=== PATIENT | female | born 1980 | race African-American/Black ===

== ENCOUNTER 2017-03-31 10:56 | Emergency (ER) | payer OTHER ==
[~2017-03-31] VITALS: Ht 160 cm; Wt 100.0 kg
[~2017-03-31 10:56] MED LIST: ALBU.5I NEB; AMLO5TAB22 PO; DICL50 PO; FLON0.053; FLOV44AE IN; MACR100C PO; PREN0.01 PO; ZITH250T PO
[2017-03-31 10:59] VITALS: BP 145/97; PULSE 88; RESP 16; TEMP 97.7; O2SAT 99
[2017-03-31] MEDS ORDERED: SODIUM CHLOR 0.9% 1000 ML INJ 1,000 ML IV SCH (11:14)
[2017-03-31] MEDS ORDERED: FLUTI220I INH (11:17)
[2017-03-31] MEDS ORDERED: VENTAER INH (11:17)
[2017-03-31] MEDS ORDERED: ALBU0.08 NEB (11:17)
[2017-03-31] MEDS ORDERED: PANTOPRAZOLE SODIUM 40 MG VIAL IVP ONE (11:30)
[2017-03-31] MEDS ORDERED: MORPHINE SULFATE 4 MG/ML INJ IV PUSH ONE ×2 (11:30→15:45)
[2017-03-31] MEDS ORDERED: ONDANSETRON HCL 4 MG/2 ML VIAL IVP ONE (11:30)
[2017-03-31] MEDS ORDERED: FAMOTIDINE 20 MG/2 ML VIAL IV PUSH ONE (11:30)
--- NOTE | 2017-03-31 11:36 | PD ---
HPI Chief Complaint: Abdominal Pain Time Seen by Provider: 11:31 Travel History International Travel<30 days: No Contact w/Intl Traveler<30days: No Traveled to known affect area: No History of Present Illness HPI 37-year-old female that presents to the ED for evaluation of abdominal pain. Per patient she's had epigastric abdominal pain as well as in the right upper quadrant for the past 2 weeks. Per patient is presently getting worse. Per patient she does have a history of gallbladder surgery multiple years ago. Per patient the pain is not worse with food and she still has her appetite. She does feel nauseous and has diarrhea. States that the pain seems to progressively getting worse. She does have a history of pancreatitis and states that he feels very similar. She went to her doctor today and he wanted her to come here straight away. Patient comes here with a prescription from that states that patient needs to be worked up for pancreatitis. Per patient the pain is 8 out of 10. Does not radiate. She does state having watery diarrhea. Stating feeling nauseous but no vomiting. No blood. There report from the doctor who sent her here patient had a recent ultrasound that showed fatty liver but no other sign of acute disease. PFSH Past Medical History Hx Anticoagulant Therapy: No Asthma: Yes Chemotherapy: No Cerebrovascular Accident: No Diabetes: No Diminished Hearing: No Genitourinary: No Hypertension: Yes Musculoskeletal: No Neurologic: No Reproductive: Yes Respiratory: Yes (ASTHMA) Immunizations Current: Yes Pancreatitis: Yes Ulcer: Yes ?: Unknown LMP: 01/23/17 : 4 Para: 0 Miscarriage: 4 Ovarian Cysts: Yes Past Surgical History Abdominal Surgery: Yes (GALLBLADDER & APPENDEX) Appendectomy: Yes Cholecystectomy: Yes Gynecologic Surgery: Yes (OVARIAN CYST) Hysterectomy: No Other Surgery: Yes Social History Alcohol Use: No Tobacco Use: No Substance Use: No Allergies-Medications (Allergen,Severity, Reaction): Coded Allergies: Amoxicillin (Verified Allergy, Severe, CAN'T BREATHE, 03/31/17) Latex (Verified Allergy, Severe, RASH, ITCH, 03/31/17) Lortab (Verified Allergy, Severe, RASH, CANT BREATHE, NAUSEA AND VOMITING , 03/31/17) [place] (Verified Allergy, Severe, ANAPHALACTIC, 03/31/17) Penicillin (Verified Allergy, Severe, HIVES, CAN'T BREATHE, 03/31/17) Shellfish (Verified Allergy, Severe, ANAPHALCTIC, 03/31/17) Tomato (Verified Allergy, Severe, ANAPHALACTIC, 03/31/17) Reported Meds & Prescriptions Reported Meds & Active Scripts Active Reported Ventolin Hfa 18 GM Inh (Albuterol Sulfate) 90 Mcg/Act Aer 2 Puff INH Q4-6H PRN Albuterol Neb (Albuterol Sulfate) 2.5 Mg/3 Ml Neb 2.5 Mg NEB Q4HR NEB PRN Flovent Hfa 12 GM Inh (Fluticasone Propionate) 220 Mcg/Act Inh 1 Puff INH BID Use daily at the same time. Review of Systems Except as stated in HPI: all other systems reviewed are Neg Physical Exam Narrative GENERAL: SKIN: Warm and dry. HEAD: Atraumatic. Normocephalic. EYES: Pupils equal and round 4 mm reactive to light and accommodation. No scleral icterus. No injection or drainage. ENT: No nasal bleeding or discharge. Mucous membranes pink and moist. Tongue is midline. No uvula deviation. NECK: Trachea midline. No JVD. CARDIOVASCULAR: Regular rate and rhythm. No murmurs, S3, S4. RESPIRATORY: No accessory muscle use. Clear to auscultation. Breath sounds equal bilaterally. GASTROINTESTINAL: Abdomen soft, patient has reproducible epigastric abdominal pain as well as right upper quadrant pain, nondistended. Hepatic and splenic margins not palpable. MUSCULOSKELETAL: Extremities without clubbing, cyanosis, or edema. No obvious deformities. Full range of motion of the upper and lower extremities bilaterally. 2+ pulses bilaterally. No lumbar, thoracic, cervical spine tenderness to palpation. NEUROLOGICAL: Awake and alert. No obvious cranial nerve deficits. Motor grossly within normal limits. Five out of 5 muscle strength in the arms and legs. Normal speech. PSYCHIATRIC: Appropriate mood and affect; insight and judgment normal. Data Data Last Documented VS Vital Signs Date Time Temp Pulse Resp B/P Pulse Ox O2 Delivery O2 Flow Rate FiO2 03/31/17 15:00 68 16 114/73 99 03/31/17 10:59 97.7 Orders Complete Blood Count With Diff (03/31/17 11:14) Comprehensive Metabolic Panel (03/31/17 11:14) Lipase (03/31/17 11:14) Lactic Acid (03/31/17 11:14) Urinalysis - C+S If Indicated (03/31/17 11:14) Iv Access Insert/Monitor (03/31/17 11:14) Sodium Chlor 0.9% 1000 Ml Inj (Ns 1000 M (03/31/17 11:14) Ed Urine Pregnancytest Poc (03/31/17 11:14) Morphine Inj (Morphine Inj) (03/31/17 11:30) Ondansetron Inj (Zofran Inj) (03/31/17 11:30) Pantoprazole Inj (Protonix Inj) (03/31/17 11:30) Famotidine Inj (Pepcid Inj) (03/31/17 11:30) Ct Abd/Pel W Iv Contrast(Rout) (03/31/17 ) Iohexol 350 Inj (Omnipaque 350 Inj) (03/31/17 13:42) Mri Mrcp W/O Contrast (03/31/17 ) Morphine Inj (Morphine Inj) (03/31/17 15:45) Labs Laboratory Tests Test 03/31/17 03/31/17 11:10 11:20 Urine Color YELLOW Urine Turbidity CLEAR Urine pH 6.0 Urine Specific [place] 1.019 Urine Protein NEG mg/dL Urine Glucose (UA) NEG mg/dL Urine Ketones NEG mg/dL Urine Occult Blood NEG Urine Nitrite NEG Urine Bilirubin NEG Urine Urobilinogen LESS THAN 2.0 MG/DL Urine Leukocyte Esterase NEG Urine RBC LESS THAN 1 /hpf Urine WBC 2 /hpf Urine Squamous Epithelial 1 /hpf Cells Urine Mucus FEW /lpf Microscopic Urinalysis Comment CULT NOT INDICATED White Blood Count 4.5 TH/MM3 Red Blood Count 4.30 MIL/MM3 Hemoglobin 11.1 GM/DL Hematocrit 35.6 % Mean Corpuscular Volume 82.7 FL Mean Corpuscular Hemoglobin 25.8 PG Mean Corpuscular Hemoglobin 31.2 % Concent Red Cell Distribution Width 17.3 % Platelet Count 266 TH/MM3 Mean Platelet Volume 8.8 FL Neutrophils (%) (Auto) 35.0 % Lymphocytes (%) (Auto) 46.8 % Monocytes (%) (Auto) 9.1 % Eosinophils (%) (Auto) 8.3 % Basophils (%) (Auto) 0.8 % Neutrophils # (Auto) 1.6 TH/MM3 Lymphocytes # (Auto) 2.1 TH/MM3 Monocytes # (Auto) 0.4 TH/MM3 Eosinophils # (Auto) 0.4 TH/MM3 Basophils # (Auto) 0.0 TH/MM3 CBC Comment DIFF FINAL Differential Comment Sodium Level 140 MEQ/L Potassium Level 3.7 MEQ/L Chloride Level 107 MEQ/L Carbon Dioxide Level 27.9 MEQ/L Anion Gap 5 MEQ/L Blood Urea Nitrogen 7 MG/DL Creatinine 0.82 MG/DL Estimat Glomerular Filtration 95 ML/MIN Rate Random Glucose 84 MG/DL Lactic Acid Level 0.7 mmol/L Calcium Level 9.0 MG/DL Total Bilirubin 0.3 MG/DL Aspartate Amino Transf 17 U/L (AST/SGOT) Alanine Aminotransferase 21 U/L (ALT/SGPT) Alkaline Phosphatase 71 U/L Total Protein 7.7 GM/DL Albumin 3.4 GM/DL Lipase 150 U/L [facility] Medical Decision Making Medical Screen Exam Complete: Yes Emergency Medical Condition: Yes Medical Record Reviewed: Yes Interpretation(s) CBC & BMP Diagram 03/31/17 11:20 LFts and lipase WNL UA negative Last Impressions Cholangiopancreatography MRI 03/31/17 0000 Signed Impressions: Service Date/Time: Friday, March 31, 2017 17:21 - CONCLUSION: Unremarkable exam post cholecystectomy Amandeep Watts MD Abdomen/Pelvis CT 03/31/17 0000 Signed Impressions: Service Date/Time: Friday, March 31, 2017 13:31 - CONCLUSION: 1. Status post cholecystectomy with slightly more prominent intra-and extrahepatic ductal dilatation including mild central pancreatic ductal dilatation. The pancreas otherwise appears unremarkable by CT. Differential considerations include sphincter dysfunction versus partial obstruction at the ampulla. Clinical correlation is recommended. HIDA scan can help establish ductal patency. Alternatively, MRCP can be performed for further evaluation. 2. Redemonstration of bilateral nearly punctate nonobstructing renal calculi, as above. 1. Artur Mcknight MD Differential Diagnosis Pancreatitis versus chronic pancreatitis versus gastritis versus gastroenteritis versus liver disease versus obstruction versus sepsis Narrative Course 37-year-old female that presents to the ED for evaluation of epigastric abdominal pain. Patient was properly examined and was found to have signs and symptoms very consistent what appears to be acute pancreatitis. Patient was sent here by her doctor for evaluation of this. IV was established, labs were ordered. IV medications and fluids were ordered as well. Labs showed no sign of acute disease. CT scan was ordered as patient continues to have severe discomfort. CT scan did show possible dilatation of the bile duct. Case discussed in my attending about the results and he recommends speaking with GI. I spoke with Dr. Trejo for recommends that we pursue the MRCP for further evaluation secondary to the patient's discomfort. The MRCP came back negative. The family is not here to be gallbladder disease. Patient was reassured. Unclear etiology but could be related to gastritis. At this time we'll treat her with pain medication, Protonix, ranitidine. Patient was told to follow with GI old patient. See ED worsening symptoms. Follow with PCP. Diagnosis Primary Impression: Epigastric abdominal pain Additional Impression: Gastritis Qualified Code: K29.00 - Acute gastritis without hemorrhage, unspecified gastritis type Referrals: Juan Magaña MD Patient Instructions: General Instructions, Narcotic given in the ED Additional Instructions: Take medications as prescribed. Follow-up with PCP or GI specialist. See ED for any worsening symptoms. Do not drink or drive while taking pain medication. Apply ice or heat as needed for pain Med/Other Pt SpecificInfo: Prescription(s) given Scripts Ranitidine 150 Mg [id number] Mg PO BID #20 TAB Ref 0 Prov:Nguyễn Mares MD 03/31/17 Pantoprazole (Protonix)40 Mg Tab40 Mg PO DAILY #30 TAB Ref 0 Prov:Nguyễn Mares MD 03/31/17 Tramadol 50 Mg Tab50 Mg PO Q6H PRN (PAIN) #20 TAB Ref 0 Prov:Nguyễn Mares MD 03/31/17 Disposition: 01 DISCHARGE HOME Condition: Stable Rodrigo Maria Mar 31, 2017 11:36
[2017-03-31 11:38] LABS: AUTOMATED NEUTROPHIL # 1.6 TH/MM3 (1.8-7.7); BASOPHIL % 0.8 % (0.0-2.0); EOSINOPHIL # 0.4 TH/MM3 (0-0.4); EOSINOPHIL % 8.3 % (0.0-4.0); HEMATOCRIT 35.6 % (35.0-46.0); HEMO FLAGS DIFF FINAL; LYMPH % 46.8 % (9.0-44.0); LYMPHOCYTE # 2.1 TH/MM3 (1.0-4.8); MEAN CELL VOLUME 82.7 FL (80.0-100.0); MEAN CORPUSCULAR HEMOGLOBIN 25.8 PG (27.0-34.0); MEAN CORPUSCULAR HGB CONC 31.2 % (32.0-36.0); MONO % 9.1 % (0.0-8.0); PLATELET COUNT 266 TH/MM3 (150-450); RED CELL DISTRIBUTION WIDTH 17.3 % (11.6-17.2); WHITE BLOOD COUNT 4.5 TH/MM3 (4.0-11.0)
[2017-03-31 11:47] LABS: BLOOD, URINE NEG (NEG); COMMENT (UR) CULT NOT INDICATED; CULTURE IF INDICATED CULT NOT INDICATED; GLUCOSE,URINE NEG (NEG); KETONE, URINE NEG (NEG); MUCUS URINE FEW /lpf (OCC); NITRITE,URINE NEG (NEG); SQUAMOUS EPITHELIAL CELL URINE 1 /hpf (0-5); URINE COLOR YELLOW (YELLW/STRAW)
[2017-03-31 11:58] LABS: ANION GAP 5 MEQ/L (5-15); AST (GOT) 17 U/L (15-37); BICARBONATE 27.9 MEQ/L (21.0-32.0); BLOOD UREA NITROGEN 7 MG/DL (7-18); CHLORIDE 107 MEQ/L (98-107); GLOMERULAR FILTRATION RATE 95 ML/MIN (>89); POTASSIUM 3.7 MEQ/L (3.5-5.1); SODIUM (NA) 140 MEQ/L (136-145)
[2017-03-31 12:02] LABS: ALKALINE PHOSPHATASE 71 U/L (45-117); ALT (GPT) 21 U/L (10-53); TOTAL BILIRUBIN ADULT 0.3 MG/DL (0.2-1.0)
[2017-03-31] MEDS ORDERED: IOHEXOL 350 MG/ML 10 ML VIAL (for RAD DIAG) IV ONE (13:42)
--- NOTE | 2017-03-31 14:21 | RADRPT ---
EXAM DATE/TIME: 03/31/2017 13:31 [facility] COMPARISON: CT ABDOMEN & PELVIS W CONTRAST, May 22, 2016, 3:01. INDICATIONS : Right upper quadrant pain. Pancreatitis with fever and diarrhea. IV CONTRAST: 100 cc Omnipaque 350 (iohexol) IV ORAL CONTRAST: No oral contrast ingested. RADIATION DOSE: 16.54 CTDIvol (mGy) MEDICAL HISTORY : Hypertension. Pancreatitis. SURGICAL HISTORY : Cholecystectomy. Appendectomy.Knee surgery. ENCOUNTER: Initial ACUITY: 2 weeks PAIN SCALE: 6/10 LOCATION: Right upper quadrant TECHNIQUE: Volumetric scanning of the abdomen and pelvis was performed. Using automated exposure control and ad justment of the mA and/or kV according to patient size, radiation dose was kept as low as reasonably achievable to obtain optimal diagnostic quality images. DICOM format image data is available electro nically for review and comparison. FINDINGS: LOWER LUNGS: Minimal bibasilar atelectasis. LIVER: Gallbladder is surgically absent. There is mild extra and central intrahepatic ductal dilatation whic h appears minimally more prominent on the current exam in comparison to previous examination. This ex tends to the level of the ampulla. Liver is otherwise unremarkable without significant focal mass. SPLEEN: Normal size without lesion. PANCREAS: Mild central pancreatic ductal dilatation new since previous exam. The pancreas demonstrates diffusel y normal enhancement. No pancreatic tail atrophy or peripancreatic fluid collections. KIDNEYS: Kidneys are symmetrical in size without evidence for hydronephrosis. There are bilateral nearly punct ate calyceal calcified calculi. Largest on the left measures up to 5 mm in the superior pole and larg est on the right measures approximately 2 mm in the mid right kidney. There are subcentimeter lateral cystic renal lesions which are too small to fully characterize. ADRENAL GLANDS: Within normal limits. VASCULAR: There is no aortic aneurysm. BOWEL/MESENTERY: Appendix is surgically absent. Bowel otherwise appears unremarkable. No evidence for obstruction. The re is no significant free fluid or drainable fluid collection. ABDOMINAL WALL: Within normal limits. RETROPERITONEUM: There is no lymphadenopathy. BLADDER: No wall thickening or mass. REPRODUCTIVE: Slightly retroverted uterus with small amount of endometrial fluid likely due to phase of menstrual c ycle. Redemonstration of prominent left ovary similar to previous exams. INGUINAL: There is no lymphadenopathy or hernia. MUSCULOSKELETAL: Within normal limits for patient age. CONCLUSION: 1. Status post cholecystectomy with slightly more prominent intra-and extrahepatic ductal dilatation including mild central pancreatic ductal dilatation. The pancreas otherwise appears unremarkable by C T. Differential considerations include sphincter dysfunction versus partial obstruction at the ampull a. Clinical correlation is recommended. HIDA scan can help establish ductal patency. Alternatively, M [employer] can be performed for further evaluation. 2. Redemonstration of bilateral nearly punctate nonobstructing renal calculi, as above. 1. Artur Mcknight MD on March 31, 2017 at 13:51 Board Certified Radiologist. This report was verified electronically.
[2017-03-31 15:00] VITALS: BP 114/73; PULSE 68; RESP 16; O2SAT 99
--- NOTE | 2017-03-31 18:08 | RADRPT ---
EXAM DATE/TIME: 03/31/2017 17:21 [facility] COMPARISON: CT ABDOMEN & PELVIS W CONTRAST, March 31, 2017, 13:31. INDICATIONS : Obstruction. MEDICAL HISTORY : Asthma. SURGICAL HISTORY : Appendectomy. Cholecystectomy. Ovarian cyst removal. Right knee arthroscopy. ENCOUNTER: Subsequent ACUITY: 2 weeks PAIN SCORE: 5/10 LOCATION: Abdomen. TECHNIQUE: Multiplanar, multisequence magnetic resonance imaging of the abdomen was performed. High-resolution 3D dataset was utilized to reconstruct maximum-intensity projection (MIP) images. FINDINGS: INTRAHEPATIC BILE DUCTS: Within normal limits. No significant anatomical variant is present. EXTRAHEPATIC BILE DUCTS: The common bile duct measures 7-8 mm No stone or filling defect is identified. GALLBLADDER: Surgically absent LIVER: Normal size and signal intensity. No concerning liver lesion is identified on this non-contrast exam. PANCREAS: The main pancreatic duct is normal in size. There is no significant anatomical variant. Signal inte nsity is within normal limits. No mass is visualized on this non-contrast exam. OTHER: The remaining visualized structures demonstrate no acute abnormality on this non-contrast exam. CONCLUSION: Unremarkable exam post cholecystectomy Amandeep Watts MD on March 31, 2017 at 18:03 Board Certified Radiologist. This report was verified electronically.
[2017-03-31] MEDS ORDERED: TRAM50TA PO (18:14)
[2017-03-31] MEDS ORDERED: PROT40TA PO (18:14)
[2017-03-31] MEDS ORDERED: RANI150T PO (18:14)
== END 2017-03-31 18:39 | disposition home or self-care (01) ==
LOC: NEPC 10:56
DX: R10.13 Epigastric pain (principal); K29.00 Acute gastritis without bleeding; N20.0 Calculus of kidney; K85.90 Acute pancreatitis without necrosis or infection, unspecified; J45.909 Unspecified asthma, uncomplicated; I10 Essential (primary) hypertension; Z79.899 Other long term (current) drug therapy; Z79.51 Long term (current) use of inhaled steroids; Z90.49 Acquired absence of other specified parts of digestive tract
CPT/HCPCS: 74177; 74181; 76377; 80053; 81001; 83605; 83690; 84703; 85025; 96374; 96375; 96376; 99285; C9113; J2270; J2405; J7030; Q9967

== ENCOUNTER 2017-04-01 22:40 | Observation (INO) | payer OTHER ==
[~2017-04-01] VITALS: Ht 160 cm; Wt 101.0 kg
[~2017-04-01 22:40] MED LIST changes: -ALBU.5I NEB; +ALBU0.08 NEB; -AMLO5TAB22 PO; -DICL50 PO; -FLON0.053; -FLOV44AE IN; +FLUTI220I INH; -MACR100C PO; -PREN0.01 PO; +PROT40TA PO; +RANI150T PO; +TRAM50TA PO; +VENTAER INH; -ZITH250T PO
[2017-04-01 22:42] VITALS: BP 132/80; PULSE 75; RESP 16; TEMP 97.8; O2SAT 98
[2017-04-02] VITALS (7 sets, daily range): BP systolic 109–136; BP diastolic 56–85; PULSE 62–80; RESP 18–19; TEMP 97.5–98.4; O2SAT 96–100
[2017-04-02] MEDS ORDERED: ONDANSETRON HCL 4 MG/2 ML VIAL IV PUSH ONE (03:45)
[2017-04-02] MEDS ORDERED: SODIUM CHLOR 0.9% 1000 ML INJ 1,000 ML IV ONE (03:45)
[2017-04-02] MEDS ORDERED: MORPHINE SULFATE 4 MG/ML INJ IV PUSH ONE (03:45)
[2017-04-02] MEDS ORDERED: PANTOPRAZOLE SODIUM 40 MG VIAL IV PUSH ONE (03:45)
--- NOTE | 2017-04-02 03:51 | PD ---
HPI Chief Complaint: GI Complaint Time Seen by Provider: 03:45 Travel History International Travel<30 days: No Contact w/Intl Traveler<30days: No Traveled to known affect area: No History of Present Illness HPI 37-year-old female presents to the emergency department for complaint of persistent epigastric and right upper quadrant abdominal pain. Patient's had symptoms for several weeks. Patient has been seen by her primary care provider and referred to the emergency department for further evaluation. Patient was seen in the emergency department yesterday and underwent laboratory work CT and MRCP. No specific abnormality was identified and patient was discharged to home with her condition follow-up with her primary care provider. She continues to have pain and has not been seen yet by a skin care instructor. Patient denies fever or chills. Patient states yesterday she tried to drink Gatorade and then advance to a bologna sandwich and then vomited. Patient states that she has had poor oral intake and that continues to have nausea with sublingual Zofran. Patient denies fever or chills. No hematemesis no coffee- ground emesis no melena or hematochezia. Patient denies generalized abdominal pain dysuria frequency urgency flank pain hematuria and no vaginal discharge or vaginal bleeding. Patient is status post cholecystectomy and appendectomy. Patient denies any chest pain or shortness of breath. Patient is unable to identify exacerbating or alleviating factors although does note that she is intolerable of oral intake because it causes vomiting. Patient also notes that her abdomen is tender to palpation. PFSH Past Medical History Narrative Medical Asthma hypertension abdominal pain of unclear etiology ovarian cyst pancreatitis cholecystectomy appendectomy; occasional alcohol use; nursing notes reviewed Hx Anticoagulant Therapy: No Asthma: Yes Chemotherapy: No Cerebrovascular Accident: No Diabetes: No Diminished Hearing: No Genitourinary: No Hypertension: Yes Musculoskeletal: No Neurologic: No Reproductive: Yes Respiratory: Yes (ASTHMA) Immunizations Current: Yes Pancreatitis: Yes Ulcer: Yes ?: Not LMP: 01/23/17 : 4 Para: 0 Miscarriage: 4 Ovarian Cysts: Yes Past Surgical History Abdominal Surgery: Yes (GALLBLADDER & APPENDEX) Appendectomy: Yes Cholecystectomy: Yes Gynecologic Surgery: Yes (OVARIAN CYST) Hysterectomy: No Other Surgery: Yes Social History Alcohol Use: Yes (OCC) Tobacco Use: No Substance Use: No Allergies-Medications (Allergen,Severity, Reaction): Coded Allergies: Amoxicillin (Verified Allergy, Severe, CAN'T BREATHE, 04/01/17) Latex (Verified Allergy, Severe, RASH, ITCH, 04/01/17) Lortab (Verified Allergy, Severe, RASH, CANT BREATHE, NAUSEA AND VOMITING , 04/01/17) Petroleum (Verified Allergy, Severe, ANAPHALACTIC, 04/01/17) Penicillin (Verified Allergy, Severe, HIVES, CAN'T BREATHE, 04/01/17) Shellfish (Verified Allergy, Severe, ANAPHALCTIC, 04/01/17) Tomato (Verified Allergy, Severe, ANAPHALACTIC, 04/01/17) Reported Meds & Prescriptions Reported Meds & Active Scripts Active Ranitidine (Ranitidine HCl) 150 Mg Tab 150 Mg PO BID Protonix (Pantoprazole Sodium) 40 Mg Tab 40 Mg PO DAILY Tramadol (Tramadol HCl) 50 Mg Tab 50 Mg PO Q6H PRN Reported Ventolin Hfa 18 GM Inh (Albuterol Sulfate) 90 Mcg/Act Aer 2 Puff INH Q4-6H PRN Albuterol Neb (Albuterol Sulfate) 2.5 Mg/3 Ml Neb 2.5 Mg NEB Q4HR NEB PRN Flovent Hfa 12 GM Inh (Fluticasone Propionate) 220 Mcg/Act Inh 1 Puff INH BID Use daily at the same time. Review of Systems Except as stated in HPI: all other systems reviewed are Neg Physical Exam Narrative GENERAL: Well-developed obese female in no acute distress no respiratory distress SKIN: Warm and dry. HEAD: Normocephalic. EYES: No scleral icterus. No injection or drainage. NECK: Supple, trachea midline. No JVD or lymphadenopathy. CARDIOVASCULAR: Regular rate and rhythm without murmurs, gallops, or rubs. RESPIRATORY: Breath sounds equal bilaterally. No accessory muscle use. GASTROINTESTINAL: Abdomen soft, tender epigastric and right upper quadrant to palpation without guarding or rebound, nondistended. MUSCULOSKELETAL: No cyanosis, or edema. BACK: Nontender without obvious deformity. No CVA tenderness. Data Data Last Documented VS Vital Signs Date Time Temp Pulse Resp B/P Pulse Ox O2 Delivery O2 Flow Rate FiO2 04/02/17 06:58 80 18 123/76 100 Room Air 04/01/17 22:42 97.8 Orders Complete Blood Count With Diff (04/02/17 03:45) Comprehensive Metabolic Panel (04/02/17 03:45) Lipase (04/02/17 03:45) Lactic Acid (04/02/17 03:45) Sodium Chlor 0.9% 1000 Ml Inj (Ns 1000 M (04/02/17 03:45) Pantoprazole Inj (Protonix Inj) (04/02/17 03:45) Ondansetron Inj (Zofran Inj) (04/02/17 03:45) Morphine Inj (Morphine Inj) (04/02/17 03:45) Ketorolac Inj (Toradol Inj) (04/02/17 06:00) Labs Laboratory Tests Test 04/02/17 04:04 White Blood Count 5.4 TH/MM3 Red Blood Count 3.94 MIL/MM3 Hemoglobin 10.4 GM/DL Hematocrit 32.5 % Mean Corpuscular Volume 82.6 FL Mean Corpuscular Hemoglobin 26.4 PG Mean Corpuscular Hemoglobin 32.0 % Concent Red Cell Distribution Width 17.2 % Platelet Count 254 TH/MM3 Mean Platelet Volume 9.0 FL Neutrophils (%) (Auto) 39.4 % Lymphocytes (%) (Auto) 45.7 % Monocytes (%) (Auto) 8.2 % Eosinophils (%) (Auto) 6.3 % Basophils (%) (Auto) 0.4 % Neutrophils # (Auto) 2.1 TH/MM3 Lymphocytes # (Auto) 2.5 TH/MM3 Monocytes # (Auto) 0.4 TH/MM3 Eosinophils # (Auto) 0.3 TH/MM3 Basophils # (Auto) 0.0 TH/MM3 CBC Comment DIFF FINAL Differential Comment Sodium Level 144 MEQ/L Potassium Level 3.5 MEQ/L Chloride Level 108 MEQ/L Carbon Dioxide Level 30.4 MEQ/L Anion Gap 6 MEQ/L Blood Urea Nitrogen 10 MG/DL Creatinine 0.83 MG/DL Estimat Glomerular Filtration 94 ML/MIN Rate Random Glucose 72 MG/DL Lactic Acid Level 1.0 mmol/L Calcium Level 8.5 MG/DL Total Bilirubin 0.1 MG/DL Aspartate Amino Transf 14 U/L (AST/SGOT) Alanine Aminotransferase 22 U/L (ALT/SGPT) Alkaline Phosphatase 88 U/L Total Protein 7.3 GM/DL Albumin 3.2 GM/DL Lipase 248 U/L [facility] Medical Decision Making Medical Screen Exam Complete: Yes Emergency Medical Condition: Yes Medical Record Reviewed: Yes Interpretation(s) CBC & BMP Diagram 04/02/17 04:04 Vital Signs Date Time Temp Pulse Resp B/P Pulse Ox O2 Delivery O2 Flow Rate FiO2 04/02/17 06:58 80 18 123/76 100 Room Air 04/01/17 22:42 97.8 75 16 132/80 98 Room Air Differential Diagnosis Abdominal pain, gastritis, peptic ulcer disease, pancreatitis, hepatitis, gastroparesis, cyclic vomiting, collected by disturbance, dehydration, esophagitis Narrative Course IV access obtained; specimens collected and sent for resulting Patient administered morphine sulfate 4 mg IV along with Zofran 4 mg IV and normal saline bolus also administered Protonix 40 mg IV CBC is automated differential and metabolic panel along with lactic acid values are normal range Patient reexamined abdomen remains very tender in the right upper quadrant mild epigastric tenderness; one-time dose of Toradol 30 mg IV administered Patient reassessed and some decrease in epigastric discomfort but continues to complain of marked right upper quadrant tenderness with palpation; additional morphine sulfate administered for pain management; patient's case discussed with on-call skin care instructor Dr. Magaña and who actually was consult on Monday for the same patient for the same complaint patient had undergone CT abdomen and pelvis that showed some intra-and extra hepatic ductal dilatation as well as mild pancreatic duct dilatation with recommendation for HIDA scan and /or MRCP; patient underwent MRCP at recommendation of skin care instructor --- MRCP was a normal study. Patient was discharged with prescription for Protonix Zantac and tramadol. Toradol has provided no symptom relief and due to worsening and persistent symptoms recommendation per skin care instructor Dr. Magaña consult this a.m. is for observation admission with planned EGD in a.m. Physician Communication Physician Communication case discussed with Dr Trejo --recommends obs with planned EGD in AM Diagnosis Primary Impression: Epigastric abdominal pain Additional Impression: Gastritis Qualified Code: K29.70 - Gastritis without bleeding, unspecified chronicity, unspecified gastritis type Admitting Information Admitting Physician Requests: Observation Carmen High MD Apr 02, 2017 03:51
[2017-04-02 04:34] LABS: AUTOMATED NEUTROPHIL # 2.1 TH/MM3 (1.8-7.7); BASOPHIL % 0.4 % (0.0-2.0); EOSINOPHIL # 0.3 TH/MM3 (0-0.4); EOSINOPHIL % 6.3 % (0.0-4.0); HEMATOCRIT 32.5 % (35.0-46.0); HEMO FLAGS DIFF FINAL; LYMPH % 45.7 % (9.0-44.0); LYMPHOCYTE # 2.5 TH/MM3 (1.0-4.8); MEAN CELL VOLUME 82.6 FL (80.0-100.0); MEAN CORPUSCULAR HEMOGLOBIN 26.4 PG (27.0-34.0); MONO % 8.2 % (0.0-8.0); NEUT % 39.4 % (16.0-70.0); PLATELET COUNT 254 TH/MM3 (150-450); RED BLOOD COUNT 3.94 MIL/MM3 (4.00-5.30); RED CELL DISTRIBUTION WIDTH 17.2 % (11.6-17.2); WHITE BLOOD COUNT 5.4 TH/MM3 (4.0-11.0)
[2017-04-02 04:56] LABS: ALT (GPT) 22 U/L (10-53); ANION GAP 6 MEQ/L (5-15); AST (GOT) 14 U/L (15-37); BICARBONATE 30.4 MEQ/L (21.0-32.0); BLOOD UREA NITROGEN 10 MG/DL (7-18); CHLORIDE 108 MEQ/L (98-107); GLOMERULAR FILTRATION RATE 94 ML/MIN (>89); POTASSIUM 3.5 MEQ/L (3.5-5.1); SODIUM (NA) 144 MEQ/L (136-145)
[2017-04-02 04:57] LABS: ALKALINE PHOSPHATASE 88 U/L (45-117); TOTAL BILIRUBIN ADULT 0.1 MG/DL (0.2-1.0)
[2017-04-02] MEDS ORDERED: KETOROLAC TROMETHAMINE 30 MG/ML (IVP) VIAL IV PUSH ONE (06:00)
[2017-04-02] MEDS ORDERED: SODIUM CHLORIDE 0.9% FLUSH 10 ML FLUSH IVF PRN (07:30)
[2017-04-02] MEDS ORDERED: MAGNESIUM HYDROXIDE SUSP 30 ML CUP PO PRN (08:00)
[2017-04-02] MEDS ORDERED: BISACODYL 10 MG SUPP RECTAL PRN (08:00)
[2017-04-02] MEDS ORDERED: HYDROmorphone HCL PF 1 MG/ML VIAL IV PRN (08:00)
[2017-04-02] MEDS ORDERED: NALOXONE HCL 0.4 MG/ML AMP IV PRN (08:00)
[2017-04-02] MEDS ORDERED: SODIUM CHLORIDE 0.9% FLUSH 10 ML FLUSH IV FLUSH PRN (08:00)
[2017-04-02] MEDS ORDERED: SENNOSIDES 8.6 MG TAB PO PRN (08:00)
[2017-04-02] MEDS ORDERED: LACTULOSE SYRUP 20 GM/30 ML CUP PO PRN (08:00)
[2017-04-02] MEDS ORDERED: SODIUM CHLORIDE 0.9% FLUSH 10 ML FLUSH IV FLUSH SCH (09:00)
--- NOTE | 2017-04-02 09:13 | HHI.HP ---
[facility] Non-Staff Admission Diagnosis Intractable RUQ/epigastric pain Diagnoses: Travel History International Travel<30 Days: No Contact w/Intl Traveler <30 Da: No Traveled to Known Affected Are: No History of Present Illness Mrs. Ortiz is a 37-year-old female. She is coming to the emergency department today secondary to abdominal pain. Abdominal pain has been present for approximately 2-1/2 weeks. In the last 4 days her abdominal pain has significantly intensified. It is located at the epigastrium and she describes sensations of cramping and distention and tenderness. Pain is fairly persistent without ever resolving. She had an MRCP which was not revealing of any pathology. Pancreatitis has been present in her past but is not found recently regarding to her abdominal pain. She also reports childhood ulcers, so ulcer would be a risk in her symptoms. Next Plan would be an EGD. No other complaints today from the patient. Her baseline medical conditions are asthma, history of ovarian cysts, recent abdominal pain, and history of pancreatitis. She has had an appendectomy and cholecystectomy in addition to ovarian cyst surgery. She is not diabetic. No chest pain reported. Review of Systems Constitutional: DENIES: Fatigue, Weight gain, Change in appetite Endocrine: DENIES: Abnorml menstrual pattern Eyes: DENIES: Blurred vision, Diplopia Ears, nose, mouth, throat: DENIES: Hearing loss, Vertigo Respiratory: DENIES: Cough, Wheezing, Hemoptysis, Shortness of breath Cardiovascular: DENIES: Palpitations, Syncope, Lower Extremity Edema Gastrointestinal: COMPLAINS OF: Abdominal pain, DENIES: Black stools, Bloody stools Genitourinary: DENIES: Abnormal vaginal bleeding, Dysmenorrhea Musculoskeletal: DENIES: Joint pain, Muscle aches Integumentary: DENIES: Abnormal pigmentation Hematologic/lymphatic: DENIES: Bruising Immunologic/allergic: DENIES: Eczema Neurologic: DENIES: Abnormal gait Psychiatric: DENIES: Anxiety, Confusion Past Family Social History Past Medical History History of pancreatitis Asthma Recent abdominal pain Ovarian cyst history Gastric ulcers as a child Past Surgical History Appendectomy Cholecystectomy Ovarian cyst removal Reported Medications Reported Meds & Active Scripts Active Ranitidine (Ranitidine HCl) 150 Mg Tab 150 Mg PO BID Protonix (Pantoprazole Sodium) 40 Mg Tab 40 Mg PO DAILY Tramadol (Tramadol HCl) 50 Mg Tab 50 Mg PO Q6H PRN Reported Ventolin Hfa 18 GM Inh (Albuterol Sulfate) 90 Mcg/Act Aer 2 Puff INH Q4-6H PRN Albuterol Neb (Albuterol Sulfate) 2.5 Mg/3 Ml Neb 2.5 Mg NEB Q4HR NEB PRN Flovent Hfa 12 GM Inh (Fluticasone Propionate) 220 Mcg/Act Inh 1 Puff INH BID Use daily at the same time. Allergies: Coded Allergies: Amoxicillin (Verified Allergy, Severe, CAN'T BREATHE, 04/02/17) Latex (Verified Allergy, Severe, RASH, ITCH, 04/02/17) Lortab (Verified Allergy, Severe, RASH, CANT BREATHE, NAUSEA AND VOMITING , 04/02/17) [place] (Verified Allergy, Severe, ANAPHALACTIC, 04/02/17) Penicillin (Verified Allergy, Severe, HIVES, CAN'T BREATHE, 04/02/17) Shellfish (Verified Allergy, Severe, ANAPHALCTIC, 04/02/17) Tomato (Verified Allergy, Severe, ANAPHALACTIC, 04/02/17) Family History Prostate cancer and males on both side of her family Breast cancer in females on both sides of her family Bone cancer in aunt. Social History Occasional alcohol use No smoking No drug abuse Physical Exam Vital Signs Vital Signs Date Time Temp Pulse Resp B/P Pulse Ox O2 Delivery O2 Flow Rate FiO2 04/02/17 08:48 100 21 04/02/17 07:30 20 04/02/17 06:58 80 18 123/76 100 Room Air 04/01/17 22:42 97.8 75 16 132/80 98 Room Air Physical Exam GENERAL: NAD, A&Ox3, obese HEAD: Normocephalic. NECK: Supple, trachea midline. No lymphadenopathy. EYES: No scleral icterus. No injection or drainage. CARDIOVASCULAR: Regular rate and rhythm without murmurs, gallops, or rubs. RESPIRATORY: Breath sounds equal bilaterally. No accessory muscle use. GASTROINTESTINAL: Abdomen soft, non-tender, nondistended. Significant tenderness at the epigastrium with guarding. MUSCULOSKELETAL: No cyanosis, or edema. SKIN: Warm and dry. NEURO: No focal neurological deficitis. Laboratory Laboratory Tests Test 04/02/17 04:04 White Blood Count 5.4 Red Blood Count 3.94 Hemoglobin 10.4 Hematocrit 32.5 Mean Corpuscular Volume 82.6 Mean Corpuscular Hemoglobin 26.4 Mean Corpuscular Hemoglobin 32.0 Concent Red Cell Distribution Width 17.2 Platelet Count 254 Mean Platelet Volume 9.0 Neutrophils (%) (Auto) 39.4 Lymphocytes (%) (Auto) 45.7 Monocytes (%) (Auto) 8.2 Eosinophils (%) (Auto) 6.3 Basophils (%) (Auto) 0.4 Neutrophils # (Auto) 2.1 Lymphocytes # (Auto) 2.5 Monocytes # (Auto) 0.4 Eosinophils # (Auto) 0.3 Basophils # (Auto) 0.0 CBC Comment DIFF FINAL Differential Comment Sodium Level 144 Potassium Level 3.5 Chloride Level 108 Carbon Dioxide Level 30.4 Anion Gap 6 Blood Urea Nitrogen 10 Creatinine 0.83 Estimat Glomerular Filtration 94 Rate Random Glucose 72 Lactic Acid Level 1.0 Calcium Level 8.5 Total Bilirubin 0.1 Aspartate Amino Transf 14 (AST/SGOT) Alanine Aminotransferase 22 (ALT/SGPT) Alkaline Phosphatase 88 Total Protein 7.3 Albumin 3.2 Lipase 248 Result Diagram: 04/02/1740304/02/17403 Assessment and Plan Problem List: (1) Epigastric abdominal pain ICD Code: R10.13 Status: Acute (2) Gastritis ICD Code: K29.70 Status: Acute Assessment and Plan Assessment and plan 37-year-old female is being admitted for persistent and severe abdominal pain without known etiology Epigastric abdominal pain GI consult EGD planned Childhood ulcer history increased risk for ulcer No free air on recent imaging Alternate causes could be esophageal or pyloric stenosis versus gastritis versus gastroparesis versus symptomatic hiatal hernia versus other Nothing by mouth When necessary pain control Asthma No exacerbation right now Continue home treatments and monitor DVT prophylaxis SCDs Problem Qualifiers (1) Gastritis: Qualified Code: K29.70 - Gastritis without bleeding, unspecified chronicity, unspecified gastritis type Nguyễn Cruz MD Apr 02, 2017 09:13
[2017-04-02] MEDS: SODIUM CHLORIDE 0.9% FLUSH 10 ML FLUSH IV FLUSH SCH ×2 (09:37→20:17)
[2017-04-02] MEDS: HYDROmorphone HCL PF 1 MG/ML VIAL IV PRN ×4 (09:37→23:27)
[2017-04-02] MEDS: SODIUM CHLOR 0.9% 1000 ML INJ 1,000 ML IV SCH ×2 (09:56→18:37)
[2017-04-02] MEDS: ONDANSETRON HCL 4 MG/2 ML VIAL IVP PRN ×2 (10:07→18:37)
[2017-04-02] MEDS: DOCUSATE SODIUM 50 MG/SENNA 8.6 MG TAB PO SCH ×2 (11:02→20:33)
--- NOTE | 2017-04-02 14:57 | PD.CONS ---
HPI History of Present Illness This is a 37 year old female with hx pancreatitis,hx ulcers in childhood who presented to the ER abdominal pain and n/v. 2 weeks ago onset abdominal pain in the epigastric and RUQ area with n/v. The pain has been intermittent throughout the day, is worse at night when she lays down. AT night this is accompanied by tingling in feet and itchy back. She was here Saturday 03/31 after being referred by PCP and then was d/c, symptoms did not improve. SHe had pancreatitis 2.5 years ago. She has had pancreatitis 6 or 7 times. She does admit she had "a shot" for her birthday on [birth year] and that is when everything started. She had an upper endoscopy in 2006, and ulcers were found. Colonoscopy in 2006 she says was normal. She says she had black tarry stools on monday but its getting better. She had diarrhea the last few days but nothing today. No NSAID use. No fevers, significant weight loss, hematemesis. CT showed mild central pancreatic ductal dilation, MRCP negative. (Sana Khanna) PFSH Past Medical History History of pancreatitis Asthma Recent abdominal pain Ovarian cyst history Gastric ulcers as a child Past Surgical History Appendectomy Cholecystectomy Ovarian cyst removal (Sana Khanna) Coded Allergies: Amoxicillin (Verified Allergy, Severe, CAN'T BREATHE, 04/02/17) Latex (Verified Allergy, Severe, RASH, ITCH, 04/02/17) Lortab (Verified Allergy, Severe, RASH, CANT BREATHE, NAUSEA AND VOMITING , 04/02/17) [place] (Verified Allergy, Severe, ANAPHALACTIC, 04/02/17) Penicillin (Verified Allergy, Severe, HIVES, CAN'T BREATHE, 04/02/17) Shellfish (Verified Allergy, Severe, ANAPHALCTIC, 04/02/17) Tomato (Verified Allergy, Severe, ANAPHALACTIC, 04/02/17) Family History Prostate cancer and males on both side of her family Breast cancer in females on both sides of her family Bone cancer in aunt. Social History Occasional alcohol use No smoking No drug abuse (Sana Khanna) Review of Systems Constitutional: COMPLAINS OF: Diaphoretic episodes Eyes: DENIES: Blurred vision Ears, nose, mouth, throat: DENIES: Hearing loss Respiratory: DENIES: Cough Cardiovascular: DENIES: Chest pain Gastrointestinal: COMPLAINS OF: Abdominal pain, Black stools, Diarrhea, Nausea , Vomiting, DENIES: Bloody stools, Constipation, Hematemesis Genitourinary: DENIES: Hematuria Musculoskeletal: DENIES: Joint Swelling Integumentary: DENIES: Jaundice Neurologic: DENIES: Abnormal gait Psychiatric: DENIES: Confusion (Sana Khanna) GI Exam Vitals I&O Vital Signs Date Time Temp Pulse Resp B/P Pulse Ox O2 Delivery O2 Flow Rate FiO2 04/02/17 10:52 97.8 62 18 109/56 96 04/02/17 09:30 70 18 113/69 98 Room Air 04/02/17 08:48 100 21 04/02/17 07:30 20 04/02/17 06:58 80 18 123/76 100 Room Air 04/01/17 22:42 97.8 75 16 132/80 98 Room Air Laboratory Test 04/02/17 04:04 White Blood Count 5.4 TH/MM3 Red Blood Count 3.94 MIL/MM3 Hemoglobin 10.4 GM/DL Hematocrit 32.5 % Mean Corpuscular Volume 82.6 FL Mean Corpuscular Hemoglobin 26.4 PG Mean Corpuscular Hemoglobin 32.0 % Concent Red Cell Distribution Width 17.2 % Platelet Count 254 TH/MM3 Mean Platelet Volume 9.0 FL Neutrophils (%) (Auto) 39.4 % Lymphocytes (%) (Auto) 45.7 % Monocytes (%) (Auto) 8.2 % Eosinophils (%) (Auto) 6.3 % Basophils (%) (Auto) 0.4 % Neutrophils # (Auto) 2.1 TH/MM3 Lymphocytes # (Auto) 2.5 TH/MM3 Monocytes # (Auto) 0.4 TH/MM3 Eosinophils # (Auto) 0.3 TH/MM3 Basophils # (Auto) 0.0 TH/MM3 CBC Comment DIFF FINAL Differential Comment Sodium Level 144 MEQ/L Potassium Level 3.5 MEQ/L Chloride Level 108 MEQ/L Carbon Dioxide Level 30.4 MEQ/L Anion Gap 6 MEQ/L Blood Urea Nitrogen 10 MG/DL Creatinine 0.83 MG/DL Estimat Glomerular Filtration 94 ML/MIN Rate Random Glucose 72 MG/DL Lactic Acid Level 1.0 mmol/L Calcium Level 8.5 MG/DL Total Bilirubin 0.1 MG/DL Aspartate Amino Transf 14 U/L (AST/SGOT) Alanine Aminotransferase 22 U/L (ALT/SGPT) Alkaline Phosphatase 88 U/L Total Protein 7.3 GM/DL Albumin 3.2 GM/DL Lipase 248 U/L Physical Examination HEENT: PERRL; normocephalic; atraumatic; no jaundice. CHEST: Chest is clear to auscultation and percussion. CARDIAC: RRR ABDOMEN: Soft, obese, epigastric & RUQ TTP; no hepatosplenomegaly; bowel sounds are present in all four quadrants. EXTREMITIES: No clubbing, cyanosis, or edema. SKIN: Normal; no rash; no jaundice. AB[employer]IG[employer]AL [employer]NC[employer] MEMBER: No focal deficits; alert and oriented times three. (Sana Khanna) Assessment and Plan Plan ASSESSMENT - abd pain, n/v - epigastric, RUQ. Pt w/ hx ulcers 10y ago, pancreatitis 6-7 times. Lipase WNL. No LFT derangement. s/p cholecystectomy. CT 03-31-17--> s/p cholecystectomy with slightly more prominent intra and extra hepatic ductal dil including mild central pancreatic ductal dilatation, the pancreas otherwise unremarkable, HIDA can est ductal patentcy, alternatively MRCP. MRCP neg. EGD/colonoscopy 2006 findings included ulcers on EGD. - diarrhea - for last 3 days, none today. consider stool cultures if diarrhea continues - anemia - 10.4 today decreased from 11.1 on 03/31/17 and 12 last year. pt admits some black tarry stools recently. PLAN - EGD in am - obtain consents - clears if tolerated - NPO after midnight - PPI - monitor HH - supportive care - further recommendations to follow This pt seen by myself and Dr Macario and this note is written on her behalf (Sana Khanna) Physician Comments seen, examined agree with above if egd negative hida scan asking for food-trial of clear liquids today npo aftermidnight (Maribel Macario MD) Sana Khanna Apr 02, 2017 14:57 Maribel Macario MD Apr 02, 2017 15:33
[2017-04-03] VITALS (8 sets, daily range): BP systolic 100–128; BP diastolic 61–78; PULSE 72–81; RESP 18–21; TEMP 97.6–98.1; O2SAT 98–100
[2017-04-03] MEDS: SODIUM CHLOR 0.9% 1000 ML INJ 1,000 ML IV SCH ×2 (05:00→18:18)
[2017-04-03] MEDS: PANTOPRAZOLE SODIUM 40 MG VIAL IV PUSH SCH (06:17)
[2017-04-03 07:14] LABS: AUTOMATED NEUTROPHIL # 2.2 TH/MM3 (1.8-7.7); BASOPHIL % 0.7 % (0.0-2.0); EOSINOPHIL # 0.2 TH/MM3 (0-0.4); EOSINOPHIL % 4.9 % (0.0-4.0); HEMATOCRIT 30.8 % (35.0-46.0); HEMO FLAGS DIFF FINAL; LYMPH % 41.2 % (9.0-44.0); MEAN CELL VOLUME 82.1 FL (80.0-100.0); MEAN CORPUSCULAR HEMOGLOBIN 26.8 PG (27.0-34.0); MEAN CORPUSCULAR HGB CONC 32.6 % (32.0-36.0); MONO % 8.8 % (0.0-8.0); NEUT % 44.4 % (16.0-70.0); PLATELET COUNT 235 TH/MM3 (150-450); RED BLOOD COUNT 3.75 MIL/MM3 (4.00-5.30); RED CELL DISTRIBUTION WIDTH 17.3 % (11.6-17.2); WHITE BLOOD COUNT 4.9 TH/MM3 (4.0-11.0)
[2017-04-03 07:51] LABS: ALT (GPT) 17 U/L (10-53); ANION GAP 6 MEQ/L (5-15); AST (GOT) 14 U/L (15-37); BICARBONATE 26.7 MEQ/L (21.0-32.0); BLOOD UREA NITROGEN 6 MG/DL (7-18); CHLORIDE 108 MEQ/L (98-107); GLOMERULAR FILTRATION RATE 109 ML/MIN (>89); POTASSIUM 3.5 MEQ/L (3.5-5.1); SODIUM (NA) 141 MEQ/L (136-145); TOTAL BILIRUBIN ADULT 0.4 MG/DL (0.2-1.0)
[2017-04-03 07:53] LABS: ALKALINE PHOSPHATASE 58 U/L (45-117)
[2017-04-03] MEDS ORDERED: FAMOTIDINE 20 MG/2 ML VIAL ONE (09:33)
--- NOTE | 2017-04-03 09:45 | HHI.PR ---
Subjective Remarks Follow up abdominal pain. 0940hrs patient is currently in EGD. 1130hrs patient seen at bedside, just returned from EGD.. Complains of slight epigastric pain and RUQ pain, 5/10, increased with palpation. She is awaiting a tray of clear liquids for lunch. Denies any chest pain, sob, fever or chills. Objective Vitals Vital Signs Date Time Temp Pulse Resp B/P Pulse Ox O2 Delivery O2 Flow Rate FiO2 04/03/17 08:50 97.7 76 18 100/61 98 04/03/17 03:39 97.7 76 18 100/61 98 04/03/17 00:23 97.9 74 21 120/74 98 04/03/17 00:06 16 04/02/17 23:17 98.4 70 18 133/84 99 04/02/17 20:20 97.5 72 19 136/85 100 04/02/17 16:22 97.8 72 18 129/75 96 04/02/17 10:52 97.8 62 18 109/56 96 I/O 04/02/17 04/02/17 04/02/17 04/03/17 04/03/17 04/03/17 07:00 15:00 23:00 07:00 15:00 23:00 Intake Total 410 ml Balance 410 ml Intake Oral 10 ml IV Total 400 ml # Voids 1 1 Result Diagram: 04/03/17 0653 04/03/17 0653 Imaging Objective Remarks GENERAL: Well nourished, obese patient in NAD SKIN: Warm and dry. HEAD: Atraumatic. Normocephalic. EYES: Pupils equal and round. No scleral icterus. ENT: No nasal bleeding or discharge. NECK: Trachea midline. No JVD. CARDIOVASCULAR: Regular rate and rhythm. RESPIRATORY: No accessory muscle use. Clear to auscultation. Breath sounds equal bilaterally. GASTROINTESTINAL: Abdomen soft, epigastric and RUQ tenderness, mild distention. MUSCULOSKELETAL: Extremities without clubbing, cyanosis, or edema. No obvious deformities. NEUROLOGICAL: Awake and alert. Motor grossly within normal limits. Five out of 5 muscle strength in the arms and legs. Normal speech. PSYCHIATRIC: Appropriate mood and affect; insight and judgment normal. Medications and IVs Current Medications Medications (Trade) Dose Ordered Sig/Devika Route Start Time Stop Time Status Last Admin (NS Flush) 2 ml BID IV FLUSH 04/02/17 09:00 04/03/17 10:33 Sodium Chloride 2 ml 2 ml UNSCH PRN IVF 04/02/17 07:30 04/02/17 13:22 (NS 1000 ml Inj) 1,000 ml @ 100 mls/hr Q10H IV 04/02/17 08:30 04/03/17 05:00 (Zofran Inj) 4 mg Q6H PRN IVP 04/02/17 08:00 04/02/17 18:37 (Dilaudid Pf Inj) 0.5 mg Q3H PRN IV 04/02/17 08:00 (Dilaudid Pf Inj) 1 mg Q3H PRN IV 04/02/17 08:00 04/02/17 23:27 (Narcan Inj) 0.4 mg UNSCH PRN IV 04/02/17 08:00 (Dari-Colace) 1 tab BID PO 04/02/17 09:00 04/03/17 10:33 (Milk Of Magnesia Liq) 30 ml Q12H PRN PO 04/02/17 08:00 (Senokot) 17.2 mg Q12H PRN PO 04/02/17 08:00 (Dulcolax Supp) 10 mg DAILY PRN RECTAL 04/02/17 08:00 (Lactulose Liq) 30 ml DAILY PRN PO 04/02/17 08:00 (Protonix Inj) 40 mg Q24H IV PUSH 04/03/17 06:00 04/03/17 06:17 Urinary Catheter: No Vascular Central Line Catheter: No A/P Problem List: (1) Epigastric abdominal pain ICD Code: R10.13 Status: Acute (2) Gastritis ICD Code: K29.70 Status: Acute Assessment and Plan 37 y/o with a history of pancreatitis, asthma, and gastric ulcers presented to the ED with complaints of abdominal pain. Epigastric abdominal pain, increased risk for ulcers, history as a child -GI consulted, EGD today shows only mild gastritis and subepithelial hemorrhage from recurrent vomiting. No ulceration or erosion seen. MRCP unremarkable. -GI recommends clear liquid diet, and supportive care. HIDA scan ordered per GI. -Cont Protonix IV -Advance diet as tolerated -Pain management with IV Dilaudid Asthma, chronic, no signs of exacerbation -Cont home medications and cont to monitor DVT prophylaxis: low risk, scds Discharge Planning Pending HIDA scan Problem Qualifiers (1) Gastritis: Qualified Code: K29.70 - Gastritis without bleeding, unspecified chronicity, unspecified gastritis type Cheyenne Silva Apr 03, 2017 09:45
[2017-04-03] MEDS ORDERED: PROPOFOL 200 MG/20 ML AMP IV PUSH ONE (09:47)
--- NOTE | 2017-04-03 09:56 | HHI.GIFU ---
Subjective Remarks Immediate postop note: EGD with biopsy Meds: MAC Indication: Nausea and vomiting CT showed mild intra and extrahepatic biliary ductal dilatation MRCP showed no intraluminal filling defects Findings: Esophagus normal Stomach: antral gastritis biopsy taken. Proximal stomach has submucosal hemorrhage consistent with recurrent vomiting Duodenum: normal Objective Vitals I&O Vital Signs Date Time Temp Pulse Resp B/P Pulse Ox O2 Delivery O2 Flow Rate FiO2 04/03/17 08:50 97.7 76 18 100/61 98 04/03/17 03:39 97.7 76 18 100/61 98 04/03/17 00:23 97.9 74 21 120/74 98 04/03/17 00:06 16 04/02/17 23:17 98.4 70 18 133/84 99 04/02/17 20:20 97.5 72 19 136/85 100 04/02/17 16:22 97.8 72 18 129/75 96 04/02/17 10:52 97.8 62 18 109/56 96 I/O 04/02/17 04/02/17 04/02/17 04/03/17 04/03/17 04/03/17 07:00 15:00 23:00 07:00 15:00 23:00 Intake Total 410 ml Balance 410 ml Intake Oral 10 ml IV Total 400 ml # Voids 1 1 Laboratory Laboratory Tests Test 04/03/17 06:53 White Blood Count 4.9 Red Blood Count 3.75 Hemoglobin 10.0 Hematocrit 30.8 Mean Corpuscular Volume 82.1 Mean Corpuscular Hemoglobin 26.8 Mean Corpuscular Hemoglobin 32.6 Concent Red Cell Distribution Width 17.3 Platelet Count 235 Mean Platelet Volume 8.7 Neutrophils (%) (Auto) 44.4 Lymphocytes (%) (Auto) 41.2 Monocytes (%) (Auto) 8.8 Eosinophils (%) (Auto) 4.9 Basophils (%) (Auto) 0.7 Neutrophils # (Auto) 2.2 Lymphocytes # (Auto) 2.0 Monocytes # (Auto) 0.4 Eosinophils # (Auto) 0.2 Basophils # (Auto) 0.0 CBC Comment DIFF FINAL Differential Comment Sodium Level 141 Potassium Level 3.5 Chloride Level 108 Carbon Dioxide Level 26.7 Anion Gap 6 Blood Urea Nitrogen 6 Creatinine 0.73 Estimat Glomerular Filtration 109 Rate Random Glucose 80 Calcium Level 8.2 Total Bilirubin 0.4 Aspartate Amino Transf 14 (AST/SGOT) Alanine Aminotransferase 17 (ALT/SGPT) Alkaline Phosphatase 58 Total Protein 6.6 Albumin 2.9 Lipase 115 Physical Exam HEENT: Pupils round and reactive to light; normocephalic; atraumatic; no jaundice. Throat is clear. NECK: Neck is supple, no JVD, no lymphadenopathy. CHEST: Chest is clear to auscultation and percussion. CARDIAC: Regular rate and rhythm with no murmur gallop or rubs. ABDOMEN: Soft, nondistended, nontender; no hepatosplenomegaly; bowel sounds are present in all four quadrants. EXTREMITIES: No clubbing, cyanosis, or edema. SKIN: Normal; no rash; no jaundice. [employer] COUNSELOR: No focal deficits; alert and oriented times three. Assessment and Plan Plan ASSESSMENT - abd pain, n/v - epigastric, RUQ. Pt w/ hx ulcers 10y ago, pancreatitis 6-7 times. Lipase WNL. No LFT derangement. s/p cholecystectomy. CT 03-31-17--> s/p cholecystectomy with slightly more prominent intra and extra hepatic ductal dil including mild central pancreatic ductal dilatation, the pancreas otherwise unremarkable, HIDA can est ductal patentcy, alternatively MRCP. MRCP neg. EGD/colonoscopy 2006 findings included ulcers on EGD. - diarrhea - for last 3 days, none today. consider stool cultures if diarrhea continues - anemia - 10.4 today decreased from 11.1 on 03/31/17 and 12 last year. pt admits some black tarry stools recently. - EGD shows only mild gastritis and subepithelial hemorrhage from recurrent vomiting. No ulceration or erosion seen. PLAN - Clear liquid diet - PPI - monitor - supportive care Deep Newsome MD Apr 03, 2017 09:56
[2017-04-03] MEDS: DOCUSATE SODIUM 50 MG/SENNA 8.6 MG TAB PO SCH ×2 (10:33→21:04)
[2017-04-03] MEDS: SODIUM CHLORIDE 0.9% FLUSH 10 ML FLUSH IV FLUSH SCH ×2 (10:33→20:59)
[2017-04-03] MEDS: HYDROmorphone HCL PF 1 MG/ML VIAL IV PRN ×3 (13:06→21:15)
[2017-04-04] MEDS: SODIUM CHLOR 0.9% 1000 ML INJ 1,000 ML IV SCH ×2 (00:30→14:51)
[2017-04-04] MEDS: HYDROmorphone HCL PF 1 MG/ML VIAL IV PRN ×3 (02:47→21:37)
[2017-04-04 03:22] VITALS: BP 119/69; PULSE 73; RESP 18; TEMP 97.9; O2SAT 99
[2017-04-04] MEDS: PANTOPRAZOLE SODIUM 40 MG VIAL IV PUSH SCH (05:47)
[2017-04-04 06:08] LABS: BASOPHIL % 0.5 % (0.0-2.0); EOSINOPHIL # 0.2 TH/MM3 (0-0.4); EOSINOPHIL % 4.1 % (0.0-4.0); HEMATOCRIT 30.4 % (35.0-46.0); HEMO FLAGS DIFF FINAL; LYMPH % 32.7 % (9.0-44.0); LYMPHOCYTE # 1.8 TH/MM3 (1.0-4.8); MEAN CELL VOLUME 81.7 FL (80.0-100.0); MEAN CORPUSCULAR HEMOGLOBIN 26.6 PG (27.0-34.0); MEAN CORPUSCULAR HGB CONC 32.5 % (32.0-36.0); MONO % 8.2 % (0.0-8.0); NEUT % 54.5 % (16.0-70.0); PLATELET COUNT 232 TH/MM3 (150-450); RED BLOOD COUNT 3.72 MIL/MM3 (4.00-5.30); RED CELL DISTRIBUTION WIDTH 17.2 % (11.6-17.2); WHITE BLOOD COUNT 5.4 TH/MM3 (4.0-11.0)
[2017-04-04 06:23] LABS: BICARBONATE 26.5 MEQ/L (21.0-32.0); POTASSIUM 3.5 MEQ/L (3.5-5.1)
[2017-04-04] MEDS: SODIUM CHLORIDE 0.9% FLUSH 10 ML FLUSH IV FLUSH SCH ×2 (07:42→21:39)
[2017-04-04] MEDS: DOCUSATE SODIUM 50 MG/SENNA 8.6 MG TAB PO SCH ×2 (07:42→21:39)
[2017-04-04 08:06] VITALS: O2SAT 96
[2017-04-04 08:21] LABS: TRANSFERRIN IRON PROFILE 256 MG/DL (200-360)
[2017-04-04 08:24] LABS: FERRITIN 20 NG/ML (8-252)
[2017-04-04 08:27] VITALS: BP 117/75; PULSE 68; RESP 18; TEMP 98; O2SAT 96
[2017-04-04] MEDS ORDERED: PROMETHAZINE HCL 25 MG SUPP RECTAL PRN (09:00)
--- NOTE | 2017-04-04 09:02 | HHI.GIFU ---
Subjective Remarks Pt reports ongoing nausea, asking for clear liquids. Zofran not helping, asking for phenergan. CT scan reviewed appears to show some abnormality in pancreatic head. CBD reported normal on MRCP but could have SOD. LFTs are normal. CT shows renal calculi, uncertain whether or not they can be symptomatic. Will get UA. Order clears and phenergan. Objective Vitals I&O Vital Signs Date Time Temp Pulse Resp B/P Pulse Ox O2 Delivery O2 Flow Rate FiO2 04/04/17 08:27 98.0 68 18 117/75 96 04/04/17 08:06 96 21 04/04/17 03:22 97.9 73 18 119/69 99 04/03/17 23:05 97.9 81 18 119/67 99 04/03/17 22:00 16 04/03/17 20:45 99 21 04/03/17 19:10 98.1 72 18 120/76 100 04/03/17 17:05 97.6 76 20 128/78 100 04/03/17 12:27 97.6 76 18 126/77 100 04/03/17 10:10 72 18 130/88 100 04/03/17 10:00 76 18 109/71 96 04/03/17 09:49 97.8 81 18 108/71 97 I/O 04/03/17 04/03/17 04/03/17 04/04/17 04/04/17 04/04/17 07:00 15:00 23:00 07:00 15:00 23:00 Intake Total 200 ml 1100 ml Balance 200 ml 1100 ml IV Total 1100 ml Other 200 ml Laboratory Laboratory Tests Test 04/04/17 05:20 White Blood Count 5.4 Red Blood Count 3.72 Hemoglobin 9.9 Hematocrit 30.4 Mean Corpuscular Volume 81.7 Mean Corpuscular Hemoglobin 26.6 Mean Corpuscular Hemoglobin 32.5 Concent Red Cell Distribution Width 17.2 Platelet Count 232 Mean Platelet Volume 9.0 Neutrophils (%) (Auto) 54.5 Lymphocytes (%) (Auto) 32.7 Monocytes (%) (Auto) 8.2 Eosinophils (%) (Auto) 4.1 Basophils (%) (Auto) 0.5 Neutrophils # (Auto) 3.0 Lymphocytes # (Auto) 1.8 Monocytes # (Auto) 0.4 Eosinophils # (Auto) 0.2 Basophils # (Auto) 0.0 CBC Comment DIFF FINAL Differential Comment Sodium Level 140 Potassium Level 3.5 Chloride Level 106 Carbon Dioxide Level 26.5 Anion Gap 8 Blood Urea Nitrogen 4 Creatinine 0.73 Estimat Glomerular Filtration 109 Rate Random Glucose 78 Calcium Level 8.2 Iron Level 47 Total Iron Binding Capacity 358 Percent Iron Saturation 13.1 Ferritin 20 Physical Exam HEENT: Pupils round and reactive to light; normocephalic; atraumatic; no jaundice. Throat is clear. NECK: Neck is supple, no JVD, no lymphadenopathy. CHEST: Chest is clear to auscultation and percussion. CARDIAC: Regular rate and rhythm with no murmur gallop or rubs. ABDOMEN: Soft, nondistended, nontender; no hepatosplenomegaly; bowel sounds are present in all four quadrants. EXTREMITIES: No clubbing, cyanosis, or edema. SKIN: Normal; no rash; no jaundice. LEASE ANALYST: No focal deficits; alert and oriented times three. Assessment and Plan Plan ASSESSMENT - abd pain, n/v - epigastric, RUQ. Pt w/ hx ulcers 10y ago, pancreatitis 6-7 times. Lipase WNL. No LFT derangement. s/p cholecystectomy. CT 03-31-17--> s/p cholecystectomy with slightly more prominent intra and extra hepatic ductal dil including mild central pancreatic ductal dilatation, the pancreas otherwise unremarkable, HIDA can est ductal patentcy, alternatively MRCP. MRCP neg. EGD/colonoscopy 2006 findings included ulcers on EGD. - diarrhea - for last 3 days, none today. consider stool cultures if diarrhea continues - anemia - 10.4 today decreased from 11.1 on 03/31/17 and 12 last year. pt admits some black tarry stools recently. - EGD shows only mild gastritis and subepithelial hemorrhage from recurrent vomiting. No ulceration or erosion seen. PLAN - UA cand s. - Phergan PO or [place] - Dr Magaña is out of country. Will check with Dr Macario re need to refer to Dr Lee for EUS. - Clear liquid diet - PPI - monitor HH - supportive care Deep Newsome MD Apr 04, 2017 09:02
[2017-04-04] MEDS ORDERED: PROMETHAZINE HCL 25 MG TAB PO PRN (10:00)
--- NOTE | 2017-04-04 10:25 | HHI.PR ---
Subjective Remarks Follow up abdominal pain, nausea and vomiting. Patient continues to have RUQ and epigastric abdominal pain with associated nausea and vomiting. Patient states she is able to keep clear liquids down for a few hours but then vomits. Denies any hematemesis. Denies any chest pain, sob, fever or chills. Dr Newsome has seen patient this AM and discussed possible ERCP options tomorrow with patient. Objective Vitals Vital Signs Date Time Temp Pulse Resp B/P Pulse Ox O2 Delivery O2 Flow Rate FiO2 04/04/17 08:27 98.0 68 18 117/75 96 04/04/17 08:06 96 21 04/04/17 03:22 97.9 73 18 119/69 99 04/03/17 23:05 97.9 81 18 119/67 99 04/03/17 22:00 16 04/03/17 20:45 99 21 04/03/17 19:10 98.1 72 18 120/76 100 04/03/17 17:05 97.6 76 20 128/78 100 04/03/17 12:27 97.6 76 18 126/77 100 I/O 04/03/17 04/03/17 04/03/17 04/04/17 04/04/17 04/04/17 07:00 15:00 23:00 07:00 15:00 23:00 Intake Total 200 ml 1100 ml Balance 200 ml 1100 ml IV Total 1100 ml Other 200 ml Result Diagram: 04/04/1751904/04/1720 Objective Remarks GENERAL: Well nourished, obese patient in NAD SKIN: Warm and dry. HEAD: Atraumatic. Normocephalic. EYES: Pupils equal and round. No scleral icterus. ENT: No nasal bleeding or discharge. NECK: Trachea midline. No JVD. CARDIOVASCULAR: Regular rate and rhythm. RESPIRATORY: No accessory muscle use. Clear to auscultation. Breath sounds equal bilaterally. GASTROINTESTINAL: Abdomen soft, epigastric and RUQ tenderness, mild distention. MUSCULOSKELETAL: Extremities without clubbing, cyanosis, or edema. No obvious deformities. NEUROLOGICAL: Awake and alert. Motor grossly within normal limits.Normal speech. PSYCHIATRIC: Appropriate mood and affect; insight and judgment normal. Medications and IVs Current Medications Medications (Trade) Dose Ordered Sig/Devika Route Start Time Stop Time Status Last Admin (NS Flush) 2 ml BID IV FLUSH 04/02/17 09:00 04/03/17 10:33 Sodium Chloride 2 ml 2 ml UNSCH PRN IVF 04/02/17 07:30 04/02/17 13:22 (NS 1000 ml Inj) 1,000 ml @ 100 mls/hr Q10H IV 04/02/17 08:30 04/03/17 18:18 (Zofran Inj) 4 mg Q6H PRN IVP 04/02/17 08:00 04/02/17 18:37 (Dilaudid Pf Inj) 0.5 mg Q3H PRN IV 04/02/17 08:00 (Dilaudid Pf Inj) 1 mg Q3H PRN IV 04/02/17 08:00 04/04/17 02:47 (Narcan Inj) 0.4 mg UNSCH PRN IV 04/02/17 08:00 (Dari-Colace) 1 tab BID PO 04/02/17 09:00 04/03/17 21:04 (Milk Of Magnesia Liq) 30 ml Q12H PRN PO 04/02/17 08:00 (Senokot) 17.2 mg Q12H PRN PO 04/02/17 08:00 (Dulcolax Supp) 10 mg DAILY PRN RECTAL 04/02/17 08:00 (Lactulose Liq) 30 ml DAILY PRN PO 04/02/17 08:00 (Protonix Inj) 40 mg Q24H IV PUSH 04/03/17 06:00 04/04/17 05:47 (Phenergan Supp) 25 mg Q6H PRN RECTAL 04/04/17 09:00 (Phenergan) 25 mg Q6H PRN PO 04/04/17 10:00 Urinary Catheter: No Vascular Central Line Catheter: No A/P Problem List: (1) Epigastric abdominal pain ICD Code: R10.13 Status: Acute (2) Gastritis ICD Code: K29.70 Status: Acute Assessment and Plan 37 y/o with a history of pancreatitis, asthma, and gastric ulcers presented to the ED with complaints of abdominal pain. Epigastric abdominal pain, increased risk for ulcers, history as a child -GI consulted, EGD today shows only mild gastritis and subepithelial hemorrhage from recurrent vomiting. No ulceration or erosion seen. MRCP unremarkable. -GI recommends clear liquid diet, and supportive care. HIDA scan ordered per GI, pending questionable ERCP in AM -Cont Protonix IV -Cont diet per GI -Pain management with IV Dilaudid Nausea and vomiting -GI changed Zosyn to Phenergan -Clear liquids Asthma, chronic, no signs of exacerbation -Cont home medications and cont to monitor DVT prophylaxis: low risk, scds Discharge Planning Pending HIDA scan, possible ERCP tomorrow Problem Qualifiers (1) Gastritis: Qualified Code: K29.70 - Gastritis without bleeding, unspecified chronicity, unspecified gastritis type Cheyenne Silva Apr 04, 2017 10:25
[2017-04-04] MEDS ORDERED: SINCALIDE 5 MCG/5 ML VIAL IV ONE (13:53)
--- NOTE | 2017-04-04 14:41 | RADRPT ---
EXAM DATE/TIME: 04/04/2017 12:00 [place] COMPARISON: No previous studies available for comparison. INDICATIONS : Epigastric pain and nausea. Cholecystectomy in 2006. DOSE: 4.1 mCi Tc99m Mebrofenin IV MEDICATION: 2.02 mcg Cholecystokinin IV; No symptomatic response. Cholecystokinin was administered by slow infusion over 8 minutes beginning at 46 minutes. MEDICAL HISTORY : Pancreatitis. SURGICAL HISTORY : Appendectomy. Cholecystectomy. ENCOUNTER: Initial ACUITY: 2 days PAIN SCALE: 3/10 LOCATION: Bilateral upper quadrant TECHNIQUE: Following the intravenous administration of radiotracer, dynamic sequential image were performed with continuous acquisition. Time-activity curves were generated. FINDINGS: HEPATIIC KINETICS: There is prompt uptake of radiotracer in the liver. No focal defects are seen. There is normal rate of washout from the hepatic parenchyma. BILIARY CLEARANCE: Activity is first seen in the extrahepatic biliary system at 15 minutes. There is normal excretion i nto the small bowel. GALLBLADDER: Surgically absent POST CHOLECYSTOKININ: After Cholecystokinin administration, there is reduction of activity in the common bile duct BILIARY ENTERIC REFLUX: None observed. CLINICAL: The patient was asymptomatic after Cholecystokinin administration. CONCLUSION: 1. No evidence for biliary obstruction. Gallbladder surgically absent. Normal passage of activity thr ough the liver. Hemant Groves MD on April 04, 2017 at 14:36 Board Certified Radiologist. This report was verified electronically.
[2017-04-04] MEDS: FERROUS SULFATE 325 MG (65 MG ELEMENTAL IRON) TAB PO SCH (14:51)
[2017-04-04 15:56] VITALS: BP 120/62; PULSE 68; RESP 18; TEMP 98.2; O2SAT 96
[2017-04-04 16:42] LABS: BLOOD, URINE NEG (NEG); COMMENT (UR) CULT NOT INDICATED; CULTURE IF INDICATED CULT NOT INDICATED; GLUCOSE,URINE NEG (NEG); KETONE, URINE 10 mg/dL (NEG); NITRITE,URINE NEG (NEG); PH, URINE 6.5 (5.0-8.5); SQUAMOUS EPITHELIAL CELL URINE 1 /hpf (0-5); URINE COLOR LIGHT-YELLOW (YELLW/STRAW)
--- NOTE | 2017-04-04 17:08 | MR ---
cc: WILLOW MARIE HAROLD H. MD DATE: 04/03/2017 PROCEDURE Esophagogastroduodenoscopy with biopsy. INDICATION Nausea and vomiting. REFERRING PHYSICIAN: Dr. Marie. PROCEDURE NOTE: After informed consent was obtained the patient was placed in the left side down position. She was sedated by the anesthesia service. After adequate sedation was achieved the Pentax videoscope was inserted in the oropharynx and advanced to the esophagus, stomach and duodenum. The scope was then slowly withdrawn, examining the mucosal surfaces carefully. Retroflex exam was performed. The scope was then straightened and a biopsy was obtained from the gastric antrum. The scope was then withdrawn out the mouth and the procedure was terminated. She tolerated the procedure well and was returned to the recovery area in good condition. FINDINGS: The esophagus appeared normal. In the stomach there was antral gastritis and a biopsy was taken. There was proximal gastric submucosal hemorrhage consistent with recurrent vomiting. The duodenum was normal. IMPRESSION 1. Gastritis. 2. With findings on imaging, she may have sphincter of Ovidio dysfunction. RECOMMENDATIONS: 1. Give proton pump inhibitor at least b.i.d. 2. Supportive measures and symptomatic therapy. Deep Newsome MD [facility] /10:05 AM /5:01 PM
[2017-04-04 19:18] VITALS: BP 124/68; PULSE 87; RESP 22; TEMP 98.1; O2SAT 98
[2017-04-04] MEDS: POLYETHYLENE GLYCOL 17 GM PKG PO SCH (21:38)
[2017-04-04 23:55] VITALS: BP 112/57; PULSE 83; RESP 18; TEMP 98; O2SAT 98
[2017-04-05] MEDS: POLYETHYLENE GLYCOL 17 GM PKG PO SCH (00:43)
[2017-04-05] MEDS: SODIUM CHLOR 0.9% 1000 ML INJ 1,000 ML IV SCH ×2 (00:44→10:53)
[2017-04-05 05:02] VITALS: BP 112/65; PULSE 84; RESP 20; TEMP 98.4; O2SAT 100
[2017-04-05] MEDS: PANTOPRAZOLE SODIUM 40 MG VIAL IV PUSH SCH (06:06)
[2017-04-05 08:14] LABS: AUTOMATED NEUTROPHIL # 2.1 TH/MM3 (1.8-7.7); BASOPHIL % 0.6 % (0.0-2.0); EOSINOPHIL # 0.3 TH/MM3 (0-0.4); EOSINOPHIL % 6.2 % (0.0-4.0); HEMATOCRIT 32.1 % (35.0-46.0); HEMO FLAGS DIFF FINAL; LYMPH % 40.8 % (9.0-44.0); LYMPHOCYTE # 1.9 TH/MM3 (1.0-4.8); MEAN CELL VOLUME 82.3 FL (80.0-100.0); MEAN CORPUSCULAR HEMOGLOBIN 25.9 PG (27.0-34.0); MEAN CORPUSCULAR HGB CONC 31.5 % (32.0-36.0); MONO % 8.8 % (0.0-8.0); NEUT % 43.6 % (16.0-70.0); PLATELET COUNT 236 TH/MM3 (150-450); RED CELL DISTRIBUTION WIDTH 17.1 % (11.6-17.2); WHITE BLOOD COUNT 4.7 TH/MM3 (4.0-11.0)
[2017-04-05] MEDS: FERROUS SULFATE 325 MG (65 MG ELEMENTAL IRON) TAB PO SCH (08:36)
[2017-04-05] MEDS: DOCUSATE SODIUM 50 MG/SENNA 8.6 MG TAB PO SCH (08:36)
[2017-04-05] MEDS: SODIUM CHLORIDE 0.9% FLUSH 10 ML FLUSH IV FLUSH SCH (08:37)
[2017-04-05 08:45] LABS: ALT (GPT) 16 U/L (10-53); ANION GAP 4 MEQ/L (5-15); BICARBONATE 30.9 MEQ/L (21.0-32.0); BLOOD UREA NITROGEN 4 MG/DL (7-18); CHLORIDE 107 MEQ/L (98-107); POTASSIUM 3.4 MEQ/L (3.5-5.1); SODIUM (NA) 142 MEQ/L (136-145)
[2017-04-05 08:48] LABS: ALKALINE PHOSPHATASE 57 U/L (45-117); AST (GOT) 11 U/L (15-37); GLOMERULAR FILTRATION RATE 103 ML/MIN (>89); TOTAL BILIRUBIN ADULT 0.3 MG/DL (0.2-1.0)
[2017-04-05 09:25] VITALS: BP 135/91; PULSE 69; RESP 20; TEMP 98
[2017-04-05] MEDS ORDERED: POTASSIUM CHLORIDE 20 MEQ CONTROLLED RELEASE TAB PO ONE (09:45)
[2017-04-05] MEDS ORDERED: traMADol HCL 50 MG TAB PO PRN (11:15)
--- NOTE | 2017-04-05 11:22 | HHI.PR ---
Subjective Remarks Follow-up for abdominal pain, nausea, vomiting. The patient had diet advanced to regular by GI, and has been tolerating bland diet so far, would like to further advance for lunch. She continues to have some upper abdominal discomfort, but has been trying to wean herself off of IV pain medicine, and requests something oral. She would like to go home if possible. Per report, patient is clear from GI perspective if tolerating diet and having BMs. The patient states that she had a liquid BM last night. Objective Vitals Vital Signs Date Time Temp Pulse Resp B/P Pulse Ox O2 Delivery O2 Flow Rate FiO2 04/05/17 09:25 98.0 69 20 135/91 04/05/17 05:02 98.4 84 20 112/65 100 04/04/17 23:55 98.0 83 18 112/57 98 04/04/17 22:30 18 04/04/17 19:18 98.1 87 22 124/68 98 04/04/17 15:56 98.2 68 18 120/62 96 I/O 04/04/17 04/04/17 04/04/17 04/05/17 04/05/17 04/05/17 07:00 15:00 23:00 07:00 15:00 23:00 Intake Total 800 ml Balance 800 ml IV Total 800 ml # Voids 1 2 Result Diagram: 04/05/17 0800 04/05/17 0800 Imaging Last Impressions Hepatobiliary Scan Nuclear Medicine 04/04/17 0000 Signed Impressions: Service Date/Time: Tuesday, April 04, 2017 12:00 - CONCLUSION: 1. No evidence for biliary obstruction. Gallbladder surgically absent. Normal passage of activity through the liver. Hemant Groves MD Objective Remarks GENERAL: Well-developed well-nourished. Obese. In no acute distress. SKIN: Warm and dry. No lesions noted. HEENT: Normocephalic. Pupils equal and round. Mucous membranes pink and moist. CARDIOVASCULAR: Regular rate and rhythm. No murmur appreciated. RESPIRATORY: No accessory muscle use. Clear to auscultation. Breath sounds equal bilaterally. GASTROINTESTINAL: Abdomen soft, epigastric TTP, nondistended. Bowel sounds x4. MUSCULOSKELETAL: No obvious deformities. No clubbing or cyanosis. No edema. NEUROLOGICAL: Awake and alert. No focal neurological deficits. Moves upper and lower extremities spontaneously. Normal speech. PSYCHIATRIC: Appropriate mood and affect; insight and judgment normal. A/P Problem List: (1) Epigastric abdominal pain ICD Code: R10.13 Status: Acute (2) Gastritis ICD Code: K29.70 Status: Acute Assessment and Plan 37 y/o with a history of pancreatitis, asthma, and gastric ulcers presented to the ED with complaints of abdominal pain. Epigastric abdominal pain, increased risk for ulcers, history as a child Reviewed: Abdominal CT 03/31 shows mild central pancreatic ductal dilation. MRCP 03/31 unremarkable. EGD 04/03 showed gastritis. HIDA scan 04/04 shows no biliary obstruction. -GI consulted, appreciate input -Cont Protonix IV, change to oral at DC -ADAT -Pain management with Toradol and IV Dilaudid prn -D/W GI, plan for ERCP as outpatient Nausea and vomiting, improved -Continue Phenergan as needed Asthma, chronic, no signs of exacerbation -Cont home medications and cont to monitor Anemia, normocytic Reviewed: hgb stable at 10.1. Ferritin and Tsat% low. -Ferrous sulfate 325mg PO daily ordered, will need to follow up outpatient for follow up labs DVT prophylaxis: low risk, scds Discharge Planning Anticipate discharge later today on Protonix, Phenergan, and tramadol if tolerating oral intake. Problem Qualifiers (1) Gastritis: Qualified Code: K29.70 - Gastritis without bleeding, unspecified chronicity, unspecified gastritis type Hammad Winston Apr 05, 2017 11:22
[2017-04-05 12:41] VITALS: BP 126/80; PULSE 75; RESP 18; TEMP 97.6; O2SAT 99
[2017-04-05] MEDS ORDERED: PROT40TA PO (12:41)
[2017-04-05] MEDS ORDERED: ULTR50TA5 PO (12:41)
[2017-04-05] MEDS ORDERED: FERR325T20 PO (12:41)
--- NOTE | 2017-04-05 13:31 | HHI.GIFU ---
Subjective Remarks Resting in bed. States she is feeling better, but still has a constant mild epigastric discomfort. No vomiting. Ordered hamburger and uzbek fries for lunch. Hoping to go home later today. Objective Vitals I&O Vital Signs Date Time Temp Pulse Resp B/P Pulse Ox O2 Delivery O2 Flow Rate FiO2 04/05/17 12:41 97.6 75 18 126/80 99 04/05/17 09:25 98.0 69 20 135/91 04/05/17 05:02 98.4 84 20 112/65 100 04/04/17 23:55 98.0 83 18 112/57 98 04/04/17 22:30 18 04/04/17 19:18 98.1 87 22 124/68 98 04/04/17 15:56 98.2 68 18 120/62 96 I/O 04/04/17 04/04/17 04/04/17 04/05/17 04/05/17 04/05/17 07:00 15:00 23:00 07:00 15:00 23:00 Intake Total 800 ml Balance 800 ml IV Total 800 ml # Voids 1 2 Laboratory Laboratory Tests Test 04/04/17 04/05/17 16:15 08:00 Urine Color LIGHT-YELLOW Urine Turbidity CLEAR Urine pH 6.5 Urine Specific [place] 1.007 Urine Protein NEG Urine Glucose (UA) NEG Urine Ketones 10 Urine Occult Blood NEG Urine Nitrite NEG Urine Bilirubin NEG Urine Urobilinogen LESS THAN 2.0 Urine Leukocyte Esterase LARGE Urine RBC 2 Urine WBC 6 Urine Squamous Epithelial 1 Cells Microscopic Urinalysis Comment CULT NOT INDICATED White Blood Count 4.7 Red Blood Count 3.90 Hemoglobin 10.1 Hematocrit 32.1 Mean Corpuscular Volume 82.3 Mean Corpuscular Hemoglobin 25.9 Mean Corpuscular Hemoglobin 31.5 Concent Red Cell Distribution Width 17.1 Platelet Count 236 Mean Platelet Volume 8.5 Neutrophils (%) (Auto) 43.6 Lymphocytes (%) (Auto) 40.8 Monocytes (%) (Auto) 8.8 Eosinophils (%) (Auto) 6.2 Basophils (%) (Auto) 0.6 Neutrophils # (Auto) 2.1 Lymphocytes # (Auto) 1.9 Monocytes # (Auto) 0.4 Eosinophils # (Auto) 0.3 Basophils # (Auto) 0.0 CBC Comment DIFF FINAL Differential Comment Sodium Level 142 Potassium Level 3.4 Chloride Level 107 Carbon Dioxide Level 30.9 Anion Gap 4 Blood Urea Nitrogen 4 Creatinine 0.77 Estimat Glomerular Filtration 103 Rate Random Glucose 82 Calcium Level 8.1 Total Bilirubin 0.3 Aspartate Amino Transf 11 (AST/SGOT) Alanine Aminotransferase 16 (ALT/SGPT) Alkaline Phosphatase 57 Total Protein 6.7 Albumin 2.8 Lipase 142 Date/Time Procedure Status Source Growth 04/05/17 11:25 Stool Occult Blood (MEGHAN) Received Stool Stool Pending Imaging Last Impressions Hepatobiliary Scan Nuclear Medicine 04/04/17 0000 Signed Impressions: Service Date/Time: Tuesday, April 04, 2017 12:00 - CONCLUSION: 1. No evidence for biliary obstruction. Gallbladder surgically absent. Normal passage of activity through the liver. Hemant Groves MD Physical Exam HEENT: Normocephalic; atraumatic; no jaundice. CHEST: CTA. CARDIAC: RRR. ABDOMEN: Soft, nondistended, mild epigastric tenderness; no hepatosplenomegaly ; bowel sounds are present in all four quadrants. EXTREMITIES: No clubbing, cyanosis, or edema. SKIN: Normal; no rash; no jaundice. CHANGE MANAGEMENT COORDINATOR: No focal deficits; alert and oriented times three. Assessment and Plan Plan ASSESSMENT - Epigastric pain, n/v. Pt w/ hx ulcers 10y ago, pancreatitis 6-7 times in the past, unclear etiology. Lipase WNL. No LFT derangement. s/p cholecystectomy. Hepatobiliary Scan Nuclear Medicine (04/04/17)----> 1. No evidence for biliary obstruction. Gallbladder surgically absent. Normal passage of activity through the liver. S/P EGD (04/04/17)----> mild gastritis and subepithelial hemorrhage from recurrent vomiting. No ulceration or erosion seen. Pathology pending. Feeling much better, but still c/o of mild epigastric discomfort that is constant. Cont. PPI. Add carafate. - Diarrhea, improved. - Anemia, mild. likely related to above. PLAN - Okay to d/c home - DORIAN, Low fat - PPI - Carafate - D/W patient and family low fat diet, small frequent meals, avoiding spicy/ fried/greasy foods, staying upright after meals - Consider EUS as outpatient - FU THU 10 days - Pt seen and examined by Dr. Newsome and myself and this note is written on his behalf Rachel Devries Apr 05, 2017 13:31
[2017-04-05] MEDS ORDERED: SUCR1S PO (13:49)
--- NOTE | 2017-04-05 14:59 | HHI.DS ---
Discharge Summary Admission Date Apr 02, 2017 at 07:32 Discharge Date: Apr 05, 2017 Admitting Diagnosis Intractable RUQ/epigastric pain (1) Epigastric abdominal pain ICD Code: R10.13 Diagnosis: Principal (2) Gastritis ICD Code: K29.70 Diagnosis: Principal Procedures EGD 04/03/17 Brief History - From Admission Mrs. Ortiz is a 37-year-old female. She is coming to the emergency department today secondary to abdominal pain. Abdominal pain has been present for approximately 2-1/2 weeks. In the last 4 days her abdominal pain has significantly intensified. It is located at the epigastrium and she describes sensations of cramping and distention and tenderness. Pain is fairly persistent without ever resolving. She had an MRCP which was not revealing of any pathology. Pancreatitis has been present in her past but is not found recently regarding to her abdominal pain. She also reports childhood ulcers, so ulcer would be a risk in her symptoms. Next Plan would be an EGD. No other complaints today from the patient. Her baseline medical conditions are asthma, history of ovarian cysts, recent abdominal pain, and history of pancreatitis. She has had an appendectomy and cholecystectomy in addition to ovarian cyst surgery. She is not diabetic. No chest pain reported. CBC/BMP: 04/05/17 0800 04/05/17 0800 Significant Findings Laboratory Tests Test 04/03/17 04/04/17 04/04/17 04/05/17 06:53 05:20 16:15 08:00 Red Blood Count 3.75 MIL/MM3 3.72 MIL/MM3 3.90 MIL/MM3 (4.00-5.30) (4.00-5.30) (4.00-5.30) Hemoglobin 10.0 GM/DL 9.9 GM/DL 10.1 GM/DL (11.6-15.3) (11.6-15.3) (11.6-15.3) Hematocrit 30.8 % 30.4 % 32.1 % (35.0-46.0) (35.0-46.0) (35.0-46.0) Mean Corpuscular Hemoglobin 26.8 PG 26.6 PG 25.9 PG (27.0-34.0) (27.0-34.0) (27.0-34.0) Red Cell Distribution Width 17.3 % (11.6-17.2) Monocytes (%) (Auto) 8.8 % (0.0-8.0) 8.2 % (0.0-8.0) 8.8 % (0.0-8.0) Eosinophils (%) (Auto) 4.9 % (0.0-4.0) 4.1 % (0.0-4.0) 6.2 % (0.0-4.0) Chloride Level 108 MEQ/L (98-107) Blood Urea Nitrogen 6 MG/DL (7-18) 4 MG/DL (7-18) 4 MG/DL (7-18) Calcium Level 8.2 MG/DL 8.2 MG/DL 8.1 MG/DL (8.5-10.1) (8.5-10.1) (8.5-10.1) Aspartate Amino Transf 14 U/L (15-37) 11 U/L (15-37) (AST/SGOT) Albumin 2.9 GM/DL 2.8 GM/DL (3.4-5.0) (3.4-5.0) Iron Level 47 MCG/DL (50-170) Percent Iron Saturation 13.1 % (20-50) Urine Ketones 10 mg/dL (NEG) Urine Leukocyte Esterase LARGE (NEG) Urine WBC 6 /hpf (0-5) Mean Corpuscular Hemoglobin 31.5 % Concent (32.0-36.0) Potassium Level 3.4 MEQ/L (3.5-5.1) Anion Gap 4 MEQ/L (5-15) Imaging Last Impressions Hepatobiliary Scan Nuclear Medicine 04/04/17 0000 Signed Impressions: Service Date/Time: Tuesday, April 04, 2017 12:00 - CONCLUSION: 1. No evidence for biliary obstruction. Gallbladder surgically absent. Normal passage of activity through the liver. Hemant Groves MD PE at Discharge GENERAL: Well-developed well-nourished. Obese. In no acute distress. SKIN: Warm and dry. No lesions noted. HEENT: Normocephalic. Pupils equal and round. Mucous membranes pink and moist. CARDIOVASCULAR: Regular rate and rhythm. No murmur appreciated. RESPIRATORY: No accessory muscle use. Clear to auscultation. Breath sounds equal bilaterally. GASTROINTESTINAL: Abdomen soft, epigastric TTP, nondistended. Bowel sounds x4. MUSCULOSKELETAL: No obvious deformities. No clubbing or cyanosis. No edema. NEUROLOGICAL: Awake and alert. No focal neurological deficits. Moves upper and lower extremities spontaneously. Normal speech. PSYCHIATRIC: Appropriate mood and affect; insight and judgment normal. Pt update on day of discharge Cleared by GI. Tolerated a hamburger for lunch. Hospital Course 37 y/o with a history of pancreatitis, asthma, and gastric ulcers presented to the ED with complaints of abdominal pain. Epigastric abdominal pain, nausea and vomiting Reviewed: Abdominal CT 03/31 shows mild central pancreatic ductal dilation. MRCP 03/31 unremarkable. EGD 04/03 showed gastritis. HIDA scan 04/04 shows no biliary obstruction. -GI consulted, appreciate input -Cont Protonix -Diet as tolerated -Pain management with Toradol Dilaudid prn -D/W GI, plan for ERCP as outpatient Pt Condition on Discharge: Stable Discharge Disposition: Discharge Home Discharge Time: > 30 minutes Discharge Instructions DIET: Follow Instructions for: Heart Healthy Diet Additional Diet Instructions: Gastritis diet: low fat diet, small frequent meals, avoiding spicy/fried/greasy foods, staying upright after meals Activities you can perform: Regular-No Restrictions Follow up Referrals: Gastroenterology - 10 Days with Deep Newsome MD PCP Follow-up - 1 Week New Medications: Ferrous Sulfate (Ferosul) 325 Mg Tablet 325 MG PO DAILY Nutritional Supplement #30 TAB Sucralfate Liq (Sucralfate Liq) 1 Gm/10 Ml Ilene 1 GM PO ACHS Reflux #1 BOTTLE Tramadol (Ultram) 50 Mg Tab 50 MG PO Q8H PRN PAIN SCALE 4 TO 10 #12 TAB Continued Medications: Albuterol 18 GM Inh (Ventolin Hfa 18 GM Inh) 90 Mcg/Act Aer 2 PUFF INH Q4-6H PRN SHORTNESS OF BREATH #1 Ref 0 INHALER Albuterol Neb (Albuterol Neb) 2.5 Mg/3 Ml Neb 2.5 MG NEB Q4HR NEB PRN SHORTNESS OF BREATH #60 Ref 0 NEBULE Fluticasone 12 GM Inh (Flovent Hfa 12 GM Inh) 220 Mcg/Act Inh 1 PUFF INH BID Use daily at the same time. Asthma Management #1 Ref 0 INHALER Pantoprazole (Protonix) 40 Mg Tab 40 MG PO DAILY Reflux #30 Ref 0 TAB (This prescription has been renewed) Discontinued Medications: Ranitidine (Ranitidine) 150 Mg Tab 150 MG PO BID Heartburn Management #20 Ref 0 TAB Tramadol (Tramadol) 50 Mg Tab 50 MG PO Q6H PRN PAIN #20 Ref 0 TAB Hammad Winston Apr 05, 2017 14:59
[2017-04-05] MEDS ORDERED: SUCRALFATE 1 GM/10 ML CUP PO SCH (16:00)
[2017-04-06] MEDS ORDERED: PANTOPRAZOLE SOD 40 MG DELAYED RELEASE TAB PO SCH (09:00)
== END 2017-04-05 16:12 | disposition home or self-care (01) ==
LOC: NEPC 22:40 → NEDA 04-02 07:32 → NEPFCDU 04-02 10:34
PROVIDERS: ADMIT Family Medicine; ATTEND Family Medicine
DX: R10.13 Epigastric pain (principal); K29.70 Gastritis, unspecified, without bleeding; R20.2 Paresthesia of skin; R61 Generalized hyperhidrosis; K86.89 Other specified diseases of pancreas; I10 Essential (primary) hypertension; J45.909 Unspecified asthma, uncomplicated; Z79.899 Other long term (current) drug therapy
CPT/HCPCS: 00740; 43239; 78227; 80048; 80053; 81001; 82272; 82728; 83540; 83550; 83605; 83690; 85025; 88305; 88312; 96361; 96374; 96375; 99285; A9537; C9113; G0378; J1170; J1885; J2270; J2405; J2805; J7030; Q0169

== ENCOUNTER 2017-09-30 23:52 | Emergency (ER) | payer OTHER ==
[~2017-09-30] VITALS: Ht 160 cm; Wt 95.0 kg
[~2017-09-30 23:52] MED LIST changes: +FERR325T20 PO; -RANI150T PO; +SUCR1S PO; +TRAM50 PO; -TRAM50TA PO
[2017-09-30 23:54] VITALS: BP 139/96; PULSE 85; RESP 16; TEMP 98.3; O2SAT 96
--- NOTE | 2017-10-01 01:00 | PD ---
HPI Chief Complaint: Injury Time Seen by Provider: 00:32 Travel History International Travel<30 days: No Contact w/Intl Traveler<30days: No Traveled to known affect area: No History of Present Illness HPI 37-year-old [id number] black female with a 26 week twin gestational presents to emergency department for evaluation of right shoulder pain after injury at work this evening around 8:00. She states that a beverage rack fell down onto her right shoulder. Patient states the pain is mild to moderate. Worse with movement. She had continued to stay at work and told her shift was over. She comes in to be evaluated. The patient has contacted her OB doctor. They have recommended that she follow-up with him in the office. Patient denies any abdominal pain, pelvic pain,, vaginal discharge or abnormal bleeding. She states that she has normal movement. No leakage of fluid. No injury to her head, left arm, no syncope PFSH Past Medical History Hx Anticoagulant Therapy: No Asthma: Yes Anxiety: No Depression: No Cardiovascular Problems: No Chemotherapy: No Cerebrovascular Accident: No Diabetes: No Diminished Hearing: No Genitourinary: No Hypertension: Yes Musculoskeletal: No Neurologic: No Reproductive: Yes Respiratory: Yes (ASTHMA) Immunizations Current: Yes Pancreatitis: Yes Thyroid Disease: No Ulcer: Yes ?: Not LMP: CURRENTLY 26 WEEKS PREGGERS : 4 Para: 0 Miscarriage: 4 Ovarian Cysts: Yes Past Surgical History Abdominal Surgery: Yes (GALLBLADDER & APPENDEX) Appendectomy: Yes Cholecystectomy: Yes Gynecologic Surgery: Yes (OVARIAN CYST) Hysterectomy: No Other Surgery: Yes (choly, appendix, l ovary, l knee) Social History Alcohol Use: Yes (OCC) Tobacco Use: No Substance Use: No Allergies-Medications (Allergen,Severity, Reaction): Coded Allergies: acetaminophen (Verified Allergy, Severe, RASH, CANT BREATHE, NAUSEA AND VOMITING, 10/01/17) amoxicillin (Verified Allergy, Severe, CAN'T BREATHE, 10/01/17) hydrocodone (Verified Allergy, Severe, RASH, CANT BREATHE, NAUSEA AND VOMITING, 10/01/17) latex (Verified Allergy, Severe, RASH, ITCH, 10/01/17) peach (Verified Allergy, Severe, ANAPHALACTIC, 10/01/17) penicillin G (Verified Allergy, Severe, HIVES, CAN'T BREATHE, 10/01/17) shellfish derived (Verified Allergy, Severe, ANAPHALCTIC, 10/01/17) tomato (Verified Allergy, Severe, ANAPHALACTIC, 10/01/17) Reported Meds & Prescriptions Reported Meds & Active Scripts Active Sucralfate Liq (Sucralfate) 1 Gm/10 Ml Ilene 1 Gm PO ACHS Ultram (Tramadol HCl) 50 Mg Tab 50 Mg PO Q8H PRN Ferosul (Ferrous Sulfate) 325 Mg Tablet 325 Mg PO DAILY Protonix (Pantoprazole Sodium) 40 Mg Tab 40 Mg PO DAILY Reported Ventolin Hfa 18 GM Inh (Albuterol Sulfate) 90 Mcg/Act Aer 2 Puff INH Q4-6H PRN Albuterol Neb (Albuterol Sulfate) 2.5 Mg/3 Ml Neb 2.5 Mg NEB Q4HR NEB PRN Flovent Hfa 12 GM Inh (Fluticasone Propionate) 220 Mcg/Act Inh 1 Puff INH BID Use daily at the same time. Review of Systems General / Constitutional: No: Fever Eyes: No: Visual changes HENT: Positive: Rhinitis, Congestion, Neck Stiffness, No: Headaches Cardiovascular: No: Chest Pain or Discomfort Respiratory: No: Shortness of Breath Gastrointestinal: No: Nausea, Vomiting, Abdominal Pain Genitourinary: No: Dysuria, Pelvic Pain, Vaginal Bleeding Musculoskeletal: Positive: Arthralgias, Limited ROM, Pain Skin: No Rash Neurologic: No: Weakness Psychiatric: No: Depression Endocrine: No: Polydipsia Hematologic/Lymphatic: No: Easy Bruising Physical Exam Narrative GENERAL: Well-developed, well-nourished in no apparent distress. Nontoxic appearing. HEAD: Normocephalic, atraumatic. EYES: Pupils equal round and reactive. Extraocular motions intact. No scleral icterus. No injection or drainage. ENT: Nose clear. Throat without erythema, tonsillar hypertrophy or exudate. Uvula midline. Airway patent. NECK: Trachea midline. Supple, right trapezius tenderness, moves head freely. No central bony tenderness or spasm. CARDIOVASCULAR: Regular rate and rhythm without murmurs, gallops, or rubs. RESPIRATORY: Clear to auscultation. Breath sounds equal bilaterally. No wheezes , rales, or rhonchi. GASTROINTESTINAL: Abdomen soft, non-tender, gravid uterus consistent with twin gestations at 26 weeks. Positive movement. No hepato-splenomegaly, or palpable masses. No guarding. EXTREMITIES: No clubbing, cyanosis, or edema. Examination of the right upper extremity reveals tenderness along the trapezius into the right shoulder. Patient has periscapular and right glenohumeral tenderness. There is no obvious deformity. The skin is intact. She has decreased range of motion due to pain. No pain in the elbow, wrist or hand. She has intact sensation with good pulses. BACK: Nontender without deformity. No flank tenderness. NEUROLOGICAL: Awake, alert and oriented x 3 .Cranial nerves grossly intact. Motor and sensory grossly within normal limits. Normal speech. Data Data Last Documented VS Vital Signs Date Time Temp Pulse Resp B/P (MAP) Pulse Ox O2 Delivery O2 Flow Rate FiO2 09/30/17 23:54 98.3 85 16 139/96 (110) 96 Room Air Orders Orders Ice/Cold Pack (10/01/17 00:45) Splint Or Brace Apply/Monitor (10/01/17 00:45) MDM Medical Decision Making Medical Screen Exam Complete: Yes Emergency Medical Condition: Yes Medical Record Reviewed: Yes Differential Diagnosis MDM: High Differential diagnoses: Fracture, sprain, strain, dislocation, contusion, neurovascular injury Narrative Course Patient's sister, does not patient's history of trauma does not correlate with any significant injury. Patient's exam is reassuring that this is a soft tissue injury and imaging is not indicated. Patient is 26 weeks with twins. Patient will be treated symptomatically with ice and immobilization. She is encouraged to follow-up with workman's comp and her OB doctor. Diagnosis Primary Impression: right shoulder contusion Additional Impression: Twin gestation Patient Instructions: General Instructions Departure Forms: Tests/Procedures, Work Release Special Instructions: Light-duty: No use the right hand 5 days Follow-up with Workmen's Compensation in 3-5 days. Additional Instructions: Rest. Ice. Sling. No use of the right arm for the next 3-5 days. Follow-up workman's comp in 3-5 days. Follow-up with your OB doctor in next 3-5 days. Return to the ER for any problems. Disposition: 01 DISCHARGE HOME Condition: Stable Hemant Lockwood Oct 01, 2017 01:00
== END 2017-10-01 02:05 | disposition home or self-care (01) ==
LOC: NEPD 23:52
DX: O9A.212 Injury, poisoning and certain other consequences of external causes complicating pregnancy, second trimester (principal); S40.011A Contusion of right shoulder, initial encounter; O30.002 Twin pregnancy, unspecified number of placenta and unspecified number of amniotic sacs, second trimester; O99.512 Diseases of the respiratory system complicating pregnancy, second trimester; J45.909 Unspecified asthma, uncomplicated; W20.8XXA Other cause of strike by thrown, projected or falling object, initial encounter; Z3A.26 26 weeks gestation of pregnancy
CPT/HCPCS: 99281

== ENCOUNTER 2017-10-25 23:48 | Emergency (ER) | payer OTHER ==
[~2017-10-25] VITALS: Ht 160 cm; Wt 96.0 kg
[2017-10-25 23:49] VITALS: BP 130/96; PULSE 95; RESP 16; TEMP 97.6; O2SAT 99
[2017-10-26] MEDS ORDERED: ONDANSETRON HCL 4 MG/2 ML VIAL IV PUSH ONE (00:30)
[2017-10-26] MEDS ORDERED: SODIUM CHLOR 0.9% 1000 ML INJ 1,000 ML IV ONE (00:30)
[2017-10-26] MEDS ORDERED: ZOFR4TAB PO (01:03)
--- NOTE | 2017-10-26 01:03 | PD ---
HPI . Vomiting Chief Complaint: GI Complaint Time Seen by Provider: 00:21 Travel History International Travel<30 days: No Contact w/Intl Traveler<30days: No Traveled to known affect area: No History of Present Illness HPI Patient presents with the acute onset of vomiting. This started about 8:30 PM. A girlfriend of hers is here with the exact same thing. Both of them ate dinner and started vomiting a couple of hours later. She denies any abdominal pain. She does complain with a headache and rhinorrhea. No fever. No urinary tract symptoms. The patient is 30 weeks with 20. She denies any contractions. PFSH Past Medical History Hx Anticoagulant Therapy: No Asthma: Yes Anxiety: No Depression: No Cardiovascular Problems: No Chemotherapy: No Cerebrovascular Accident: No Diabetes: No Diminished Hearing: No Genitourinary: No Hypertension: Yes Musculoskeletal: No Neurologic: No Reproductive: Yes Respiratory: Yes Immunizations Current: Yes Pancreatitis: Yes Thyroid Disease: No Ulcer: Yes ?: LMP: 04/27/17 : 4 Para: 0 Miscarriage: 4 Ovarian Cysts: Yes Past Surgical History Abdominal Surgery: Yes Appendectomy: Yes Cholecystectomy: Yes Gynecologic Surgery: Yes (OVARIAN CYST REMOVED) Hysterectomy: No Other Surgery: Yes Social History Alcohol Use: No Tobacco Use: No Substance Use: No Allergies-Medications (Allergen,Severity, Reaction): Coded Allergies: acetaminophen (Verified Allergy, Severe, RASH, CANT BREATHE, NAUSEA AND VOMITING, 10/25/17) amoxicillin (Verified Allergy, Severe, CAN'T BREATHE, 10/25/17) hydrocodone (Verified Allergy, Severe, RASH, CANT BREATHE, NAUSEA AND VOMITING, 10/25/17) latex (Verified Allergy, Severe, RASH, ITCH, 10/25/17) peach (Verified Allergy, Severe, ANAPHALACTIC, 10/25/17) penicillin G (Verified Allergy, Severe, HIVES, CAN'T BREATHE, 10/25/17) shellfish derived (Verified Allergy, Severe, ANAPHALCTIC, 10/25/17) tomato (Verified Allergy, Severe, ANAPHALACTIC, 10/25/17) Reported Meds & Prescriptions Reported Meds & Active Scripts Active Zofran (Ondansetron HCl) 4 Mg Tab 4 Mg PO Q6HR PRN Reported Ventolin Hfa 18 GM Inh (Albuterol Sulfate) 90 Mcg/Act Aer 2 Puff INH Q4-6H PRN Flovent Hfa 12 GM Inh (Fluticasone Propionate) 220 Mcg/Act Inh 1 Puff INH BID Use daily at the same time. Review of Systems Except as stated in HPI: all other systems reviewed are Neg General / Constitutional: No: Fever, Chills Gastrointestinal: Positive: Nausea, Vomiting, No: Abdominal Pain Genitourinary: No: Urgency, Frequency, Dysuria, Pelvic Pain, Vaginal Bleeding Physical Exam Narrative GENERAL: Awake and alert and in no acute distress. SKIN: warm/dry. Good color and turgor. HEAD: Normocephalic. Atraumatic. EYES: Pupils equal and round. No scleral icterus. No injection or drainage. ENT: No nasal bleeding or discharge. Mucous membranes pink and moist. NECK: Trachea midline. Full range of motion without pain.. CARDIOVASCULAR: Regular rate and rhythm. Heart sounds are normal. RESPIRATORY: No accessory muscle use. Clear to auscultation. Breath sounds equal bilaterally. GASTROINTESTINAL: Abdomen soft. Nontender. Bowel sounds present. Nondistended. Gravid uterus. MUSCULOSKELETAL: Right upper extremity is in a sling. NEUROLOGICAL: Awake and alert. No obvious cranial nerve deficits. Motor grossly within normal limits. Normal speech. PSYCHIATRIC: Appropriate mood and affect; insight and judgment normal. Data Data Last Documented VS Vital Signs Date Time Temp Pulse Resp B/P (MAP) Pulse Ox O2 Delivery O2 Flow Rate FiO2 10/25/17 23:49 97.6 95 16 130/96 (107) 99 Room Air Orders Orders Sodium Chlor 0.9% 1000 Ml Inj (Ns 1000 M (10/26/17 00:30) Ondansetron Inj (Zofran Inj) (10/26/17 00:30) [facility] Medical Decision Making Medical Screen Exam Complete: Yes Emergency Medical Condition: Yes Differential Diagnosis Differential diagnosis includes but is not limited to viral gastritis, food poisoning, pancreatitis, pneumonia, hepatitis, acute coronary syndrome, Narrative Course This patient presents along with a friend with the acute onset of vomiting which started just a few hours after eating supper. She'll be treated with IV fluids and IV antiemetics. Diagnosis Primary Impression: Vomiting Qualified Codes: R11.2 - Nausea with vomiting, unspecified Med/Other Pt SpecificInfo: Prescription(s) given Scripts Ondansetron (Zofran) 4 Mg Tab 4 MG PO Q6HR Y for NAUSEA OR VOMITING, #6 TAB 0 Refills Prov: Keri Méndez MD 10/26/17 Disposition: 01 DISCHARGE HOME Condition: Stable Keri Méndez MD Oct 26, 2017 01:03
== END 2017-10-26 02:15 | disposition home or self-care (01) ==
LOC: NEPC 23:48
DX: O21.2 Late vomiting of pregnancy (principal); O26.893 Other specified pregnancy related conditions, third trimester; R51 Headache; J34.89 Other specified disorders of nose and nasal sinuses; J45.909 Unspecified asthma, uncomplicated; O16.3 Unspecified maternal hypertension, third trimester; Z87.19 Personal history of other diseases of the digestive system; Z3A.30 30 weeks gestation of pregnancy; Z79.51 Long term (current) use of inhaled steroids
CPT/HCPCS: 96361; 96374; 99284; J2405; J7030

== ENCOUNTER 2017-12-20 09:51 | Emergency (ER) | payer OTHER ==
[~2017-12-20] VITALS: Ht 160 cm; Wt 105.0 kg
[~2017-12-20 09:51] MED LIST changes: -ALBU0.08 NEB; -FERR325T20 PO; -PROT40TA PO; -SUCR1S PO; -TRAM50 PO; +ZOFR4TAB PO
[2017-12-20 10:00] VITALS: BP 151/83; PULSE 16; PULSE 90; RESP 16; TEMP 97.4; O2SAT 99
--- NOTE | 2017-12-20 12:45 | PD ---
HPI Chief Complaint: Cold / Flu Symptoms Time Seen by Provider: 12:25 Travel History International Travel<30 days: No Contact w/Intl Traveler<30days: No Traveled to known affect area: No History of Present Illness HPI 37-year-old female presents to the ED for evaluation of one week history of left earache, dull sense of hearing, sinus congestion, rhinorrhea, sore throat. She denies fever, chills, nausea vomiting, cough, shortness of breath. She endorses history seasonal allergies. Also complains of redness and pain of the left eyelid. Onset 2 days ago. She denies headaches, dizziness, vision changes. She did not receive this years flu vaccine. Denies sick contacts. She is not currently taking anything for her seasonal allergies. PFSH Past Medical History Hx Anticoagulant Therapy: No Asthma: Yes Anxiety: No Depression: No Cardiovascular Problems: No Chemotherapy: No Cerebrovascular Accident: No Diabetes: No Diminished Hearing: No Gastrointestinal Disorders: No Genitourinary: No Hypertension: No Musculoskeletal: No Neurologic: No Reproductive: Yes Respiratory: Yes (ASTHMA) Immunizations Current: Yes Pancreatitis: Yes Thyroid Disease: No Ulcer: Yes ?: LMP: 28 WEEKS : 4 Para: 0 Miscarriage: 4 Ovarian Cysts: Yes Past Surgical History Abdominal Surgery: Yes Appendectomy: Yes Cholecystectomy: Yes Gynecologic Surgery: Yes (OVARIAN CYST REMOVED) Hysterectomy: No Other Surgery: Yes Social History Alcohol Use: No Tobacco Use: No Substance Use: No Allergies-Medications (Allergen,Severity, Reaction): Coded Allergies: acetaminophen (Verified Allergy, Severe, RASH, CANT BREATHE, NAUSEA AND VOMITING, 10/25/17) amoxicillin (Verified Allergy, Severe, CAN'T BREATHE, 10/25/17) hydrocodone (Verified Allergy, Severe, RASH, CANT BREATHE, NAUSEA AND VOMITING, 10/25/17) latex (Verified Allergy, Severe, RASH, ITCH, 10/25/17) peach (Verified Allergy, Severe, ANAPHALACTIC, 10/25/17) penicillin G (Verified Allergy, Severe, HIVES, CAN'T BREATHE, 10/25/17) shellfish derived (Verified Allergy, Severe, ANAPHALCTIC, 10/25/17) tomato (Verified Allergy, Severe, ANAPHALACTIC, 10/25/17) Reported Meds & Prescriptions Reported Meds & Active Scripts Active Erythromycin Opth Oint 5 Mg/Gm Oint 1 Applic LEFT EYE QID 5 Days Doxycycline Hyclate 100 Mg Cap 100 Mg PO BID Reported Ventolin Hfa 18 GM Inh (Albuterol Sulfate) 90 Mcg/Act Aer 2 Puff INH Q4-6H PRN Flovent Hfa 12 GM Inh (Fluticasone Propionate) 220 Mcg/Act Inh 1 Puff INH BID Use daily at the same time. Review of Systems Except as stated in HPI: all other systems reviewed are Neg Physical Exam Narrative GENERAL: Well-nourished, well-developed obese AA female in no acute distress. SKIN: Warm and dry. HEAD: Normocephalic. Atraumatic. EYES: No scleral icterus. OS mildly injected. No drainage. PERRLA. EOMI. Internal hordeolum of the upper lid. ENT: Bilateral serous effusions. Right tympanic membrane pearly pina. Left tympanic membrane erythematous, mildly bulging. No loss of landmarks. Nasal mucosa is coated and thick yellow-green discharge. Tender to palpation of the facial sinuses. Oropharynx mild erythema. No edema or exudate. NECK: Supple, trachea midline. No JVD. Tender anterior cervical LAD. CARDIOVASCULAR: Regular rate and rhythm without murmurs, gallops, or rubs. RESPIRATORY: Breath sounds clear and equal bilaterally. No accessory muscle use. GASTROINTESTINAL: Abdomen soft, non-tender, nondistended. + Bowel sounds MUSCULOSKELETAL: No cyanosis, or edema. BACK: Nontender without obvious deformity. No CVA tenderness. Data Data Last Documented VS Vital Signs Date Time Temp Pulse Resp B/P (MAP) Pulse Ox O2 Delivery O2 Flow Rate FiO2 12/20/17 10:00 97.4 90 16 151/83 (105) 99 Orders Orders Ed Discharge Order (12/20/17 12:52) [facility] Medical Decision Making Medical Screen Exam Complete: Yes Emergency Medical Condition: Yes Differential Diagnosis Acute sinusitis versus otitis media versus hordeolum versus viral syndrome versus other Narrative Course 37-year-old female presents to the ED for evaluation of one week history of left earache, dull sense of hearing, sinus congestion, rhinorrhea, sore throat. She denies fever, chills, nausea vomiting, cough, shortness of breath. She endorses history seasonal allergies. Also complains of redness and pain of the left eyelid. Onset 2 days ago. She denies headaches, dizziness, vision changes. She did not receive this years flu vaccine. Denies sick contacts. She was afebrile on presentation. On exam there is bilateral serous effusions of the tympanic membrane, left tympanic membrane erythematous and mildly bulging , no loss of landmarks. Patient has copious thick yellow-green secretions in the nose. Oropharynx without edema or exudate. Positive tenderness to palpation of the facial sinuses. The left eye exam is consistent with internal hordeolum. Patient has several medication allergies. We'll treat for sinusitis with doxycycline 100 mg twice a day 10 days and treat the hordeolum with erythromycin ointment 4 times a day. Patient is instructed to follow with ENT and pastry supervisor. She is stable and discharged home. Diagnosis Primary Impression: Acute sinusitis Qualified Codes: J01.90 - Acute sinusitis, unspecified Additional Impression: Hordeolum internum left upper eyelid Referrals: Ear / Nose / Throat Specialist Plastic Surgery Specialist Additional Instructions: Rest, hydrate. Begin antibiotics today and take them until every dose is gone. Consider taking a daily antihistamine with decongestant such as Claritin-D or Margarette-D to manage allergy symptoms. Erythromycin ointment place a ribbon in the eye 4 times a day. Did not allow the tip of the applicator bottle to touch the eye. Wash hands before and after touching or treating the eye. Warm compresses applied to the attending 15 minutes per session 4-5 times a day will help to reduce pain symptoms and enhance healing. Follow-up with the learning support specialist. Follow-up with the pastry supervisor if eye symptoms do not resolve in one week. Return to the ED for worsening symptoms or any urgent or emergent medical condition. Med/Other Pt SpecificInfo: Prescription(s) given Scripts Erythromycin Opth Oint (Erythromycin Opth Oint) 5 Mg/Gm Oint 1 APPLIC LEFT EYE QID for Infection for 5 Days, #1 TUBE 0 Refills Prov: Dewayne Brooks MD 12/20/17 Doxycycline Hyclate (Doxycycline Hyclate) 100 Mg Cap 100 MG PO BID for Infection, #20 CAP 0 Refills Prov: Dewayne Brooks MD 12/20/17 Disposition: 01 DISCHARGE HOME Condition: Stable Natalee Carias Dec 20, 2017 12:45
[2017-12-20] MEDS ORDERED: ERYTOIN10 LEFT EYE (12:49)
[2017-12-20] MEDS ORDERED: DOXY100C PO (12:49)
== END 2017-12-20 13:05 | disposition home or self-care (01) ==
LOC: NEPK 09:51
DX: J01.90 Acute sinusitis, unspecified (principal); H00.024 Hordeolum internum left upper eyelid; J45.909 Unspecified asthma, uncomplicated
CPT/HCPCS: 99283